=== PATIENT | male | born 1955 | race Caucasian/White ===

== ENCOUNTER → 2017-11-18 11:39 | Outpatient (CLI) | payer BC, SELFPAY ==
[2017-11-18 14:35] LABS: Absolute Lymphocyte Count 1.43 X10^3/ul (0.83-4.51); Absolute Neutrophil Count 3.6 X10^3/uL (2.0-7.7); Basophil# 0.02 X10^3/uL; Basophil% 0.4 % (0-1); Eosinophil# 0.12 X10^3/uL; Eosinophils% 2.1 % (0-5); Hematocrit 46.6 % (40-54); Hemoglobin 16.4 g/dl (13.0-16.5); Lymphocyte # 1.43 X10^3/ul (4.0); Lymphocyte % 25.4 % (19-41); Mean Corp Hgb Conc 35.2 g/gl (32-36); Mean Corpuscular Hgb 32.5 pg (27.0-32.0); Mean Corpuscular Volume 92.5 fL (80-94); Mean Platelet Vol. 9.6 fl (6.2-12.0); Monocyte# 0.43 X10^3/uL; Monocyte% 7.6 % (0-10); Neutrophil # 3.56 X10^3/uL (2.7-7.7); Neutrophil % 63.3 % (47-70); Platelet Count 267 K/mm3 (150-450); RBC Distribution Width CV 13.1 % (11.6-14.6); RBC Distribution Width SD 43.2 fl (35.1-43.9); Red Blood Count 5.04 M/mm3 (4.6-6.2); White Blood Count 5.6 K/mm3 (4.4-11.0)
[2017-11-18 14:39] LABS: POSITIVE COUNT NO; POSITIVE DIFFERENTIAL NO; POSITIVE MORPHOLOGY NO
[2017-11-18 14:46] LABS: Vitamin D,25 Hydroxy 29.5 ng/mL (29.95-100.01)
[2017-11-18 14:52] LABS: ALB/GLOB Ratio 1.1 RATIO (0.9-2.4); AST(SGOT) 27 U/L (15-37); Alanine Aminotransfer ALT/SGPT 42 U/L (16-61); Albumin, Serum 3.7 g/dL (3.2-5.0); Alkaline Phosphatase 122 U/L (45-117); Anion Gap 8 (5-15); BUN 17 mg/dL (7-18); BUN/Creat Ratio 15.5 RATIO (10-20); Calcium,Total 8.5 mg/dL (8.5-10.1); Chloride 104 mmol/L (98-107); EST Glomerular Filtration Rate 72 mL/min (>60); Est Glom Filt Rate - Afr Amer 87 mL/min (>60); Globulin 3.5 g/dL (2.2-4.2); Glucose 151 mg/dL (74-106); PSA,Total - Annual Screen 3.15 ng/mL (0.00-4.00); Potassium 3.9 mmol/L (3.5-5.1); Protein, Total 7.2 g/dL (6.4-8.2); Sodium Level 139 mmol/L (136-145)
[2017-11-20 12:28] LABS: Hep C Antibodies <0.1 s/co ratio (0.0-0.9)
== END ==
PROVIDERS: Family Provider Family Medicine Geriatric Medicine; PCP Family Medicine Geriatric Medicine; Visit Provider Family Medicine Geriatric Medicine
DX: Z13.89 Encounter for screening for other disorder (principal); Z12.5 Encounter for screening for malignant neoplasm of prostate; E55.9 Vitamin D deficiency, unspecified; I10 Essential (primary) hypertension
CPT/HCPCS: 36415; 80053; 82306; 84153; 84443; 85025; 86803; G0103

== ENCOUNTER → 2018-05-19 09:42 | Outpatient (CLI) | payer BC, SELFPAY ==
[2018-05-19 12:45] LABS: Absolute Lymphocyte Count 1.42 X10^3/ul (0.83-4.51); Absolute Neutrophil Count 3.5 X10^3/uL (2.0-7.7); Basophil# 0.03 X10^3/uL; Basophil% 0.5 % (0-1); Eosinophil# 0.13 X10^3/uL; Eosinophils% 2.2 % (0-5); Hematocrit 48.3 % (40-54); Hemoglobin 16.8 g/dl (13.0-16.5); Lymphocyte # 1.42 X10^3/ul (4.0); Lymphocyte % 24.5 % (19-41); Mean Corp Hgb Conc 34.8 g/gl (32-36); Mean Corpuscular Hgb 31.8 pg (27.0-32.0); Mean Corpuscular Volume 91.5 fL (80-94); Mean Platelet Vol. 9.4 fl (6.2-12.0); Monocyte# 0.69 X10^3/uL; Monocyte% 11.9 % (0-10); Neutrophil % 60.4 % (47-70); Platelet Count 270 K/mm3 (150-450); RBC Distribution Width CV 13.2 % (11.6-14.6); RBC Distribution Width SD 43.3 fl (35.1-43.9); Red Blood Count 5.28 M/mm3 (4.6-6.2); White Blood Count 5.8 K/mm3 (4.4-11.0)
[2018-05-19 12:46] LABS: POSITIVE COUNT NO; POSITIVE DIFFERENTIAL NO; POSITIVE MORPHOLOGY NO
[2018-05-19 13:07] LABS: AST(SGOT) 31 U/L (15-37); Alanine Aminotransfer ALT/SGPT 49 U/L (16-61); Albumin, Serum 3.8 g/dL (3.2-5.0); Alkaline Phosphatase 128 U/L (45-117); Anion Gap 6 (5-15); BUN 16 mg/dL (7-18); BUN/Creat Ratio 15.2 RATIO (10-20); Calcium,Total 8.6 mg/dL (8.5-10.1); Chloride 103 mmol/L (98-107); Creatinine, Serum 1.05 mg/dL (0.70-1.30); EST Glomerular Filtration Rate 75 mL/min (>60); Est Glom Filt Rate - Afr Amer 91 mL/min (>60); Globulin 3.8 g/dL (2.2-4.2); Glucose 89 mg/dL (74-106); Potassium 4.2 mmol/L (3.5-5.1); Protein, Total 7.6 g/dL (6.4-8.2); Sodium Level 139 mmol/L (136-145); Thyroid Stim Hormone (TSH) 1.28 uIU/mL (0.358-3.74)
== END ==
PROVIDERS: Family Provider Family Medicine Geriatric Medicine; PCP Family Medicine Geriatric Medicine; Visit Provider Family Medicine Geriatric Medicine
DX: E55.9 Vitamin D deficiency, unspecified (principal); I10 Essential (primary) hypertension
CPT/HCPCS: 36415; 80053; 84443; 85025

== ENCOUNTER → 2018-11-24 10:04 | Outpatient (CLI) | payer MEDICARE, BC, SELFPAY ==
[2018-11-24 10:37] LABS: Absolute Lymphocyte Count 1.24 X10^3/ul (0.83-4.51); Basophil# 0.02 X10^3/uL; Basophil% 0.3 % (0-1); Eosinophil# 0.09 X10^3/uL; Eosinophils% 1.5 % (0-5); Hematocrit 47.4 % (40-54); Hemoglobin 16.5 g/dl (13.0-16.5); Lymphocyte # 1.24 X10^3/ul (4.0); Lymphocyte % 20.1 % (19-41); Mean Corp Hgb Conc 34.8 g/gl (32-36); Mean Corpuscular Hgb 31.3 pg (27.0-32.0); Mean Corpuscular Volume 89.9 fL (80-94); Mean Platelet Vol. 8.9 fl (6.2-12.0); Monocyte# 0.67 X10^3/uL; Monocyte% 10.9 % (0-10); Neutrophil # 4.02 X10^3/uL (2.7-7.7); Neutrophil % 65.1 % (47-70); Platelet Count 258 K/mm3 (150-450); RBC Distribution Width CV 13.9 % (11.6-14.6); RBC Distribution Width SD 45.2 fl (35.1-43.9); Red Blood Count 5.27 M/mm3 (4.6-6.2); White Blood Count 6.2 K/mm3 (4.4-11.0)
[2018-11-24 10:41] LABS: POSITIVE COUNT YES; POSITIVE DIFFERENTIAL NO; POSITIVE MORPHOLOGY YES
[2018-11-24 11:09] LABS: AST(SGOT) 25 U/L (15-37); Alanine Aminotransfer ALT/SGPT 31 U/L (16-61); Albumin, Serum 3.6 g/dL (3.2-5.0); Alkaline Phosphatase 128 U/L (45-117); Anion Gap 6 (5-15); BUN 22 mg/dL (7-18); BUN/Creat Ratio 21.4 RATIO (10-20); Calcium,Total 8.6 mg/dL (8.5-10.1); Chloride 104 mmol/L (98-107); Creatinine, Serum 1.03 mg/dL (0.70-1.30); EST Glomerular Filtration Rate 77 mL/min (>60); Est Glom Filt Rate - Afr Amer 93 mL/min (>60); Globulin 3.5 g/dL (2.2-4.2); Glucose 110 mg/dL (74-106); Protein, Total 7.1 g/dL (6.4-8.2); Sodium Level 137 mmol/L (136-145); Thyroid Stim Hormone (TSH) 1.37 uIU/mL (0.358-3.74)
[2018-11-24 13:59] LABS: Vitamin D,25 Hydroxy 22.9 ng/mL (29.95-100.01)
[2018-11-26 10:20] LABS: Pathologist Review Reviewed
== END ==
PROVIDERS: Family Provider Family Medicine Geriatric Medicine; PCP Family Medicine Geriatric Medicine; Visit Provider Family Medicine Geriatric Medicine
DX: E55.9 Vitamin D deficiency, unspecified (principal); I10 Essential (primary) hypertension; Z12.5 Encounter for screening for malignant neoplasm of prostate
CPT/HCPCS: 36415; 80053; 82306; 84153; 84443; 85025; G0103

== ENCOUNTER → 2019-03-27 12:42 | Outpatient (CLI) | payer MEDICARE, BC, SELFPAY ==
--- NOTE | 2019-03-27 12:48 | RAD_ITS ---
HISTORY:right knee pain x several monthsNKIincreasing pain right knee pain x several monthsNKIincreasing pain COMPARISON: None FINDINGS: # of images incl. paperwork: 4 XR Knee Complete 4 Views or More: Right BONE AND JOINTS: No acute fracture or subluxation. Minimal spurring at the patellofemoral joint as well as the tibial spines SOFT TISSUES: Unremarkable. No radiopaque foreign body. RAD/Knee 4 or More Views IMPRESSION: No acute pathology Minimal spurring at the patellofemoral joint as well as at the tibial spines at 2121 Reported and signed by: Little Blake DO Electronically Signed: Little Blake DO at 21:20 EDT Tel , Service support ,
== END ==
PROVIDERS: Family Provider Family Medicine Geriatric Medicine; PCP Family Medicine Geriatric Medicine; Referring Provider Family Medicine Geriatric Medicine; Visit Provider Family Medicine Geriatric Medicine
DX: M25.561 Pain in right knee (principal)
CPT/HCPCS: 73564

== ENCOUNTER 2019-04-07 12:59 | Outpatient (RCR) | payer MEDICARE, BC, SELFPAY ==
--- NOTE | 2019-04-07 13:45 | HP.PTEVAL_ITS ---
Patient's Visit Information ALONSO BEAN is a 63 year old M referred to Physical Therapy by Dash Rueda MD with a diagnosis of OA R knee. Date of Evaluation: 04/07/19 Physical Therapist: Mj Beckford, DPT, OCS, CSCS - Visit Plan Plan: No skilled intervention required at this time. I have shown the patient HS stretch which addresses his only biomechanical clinical deficit today. i have recommended non damaging ROM exercises. The injections seem to have done their job and gotten rid of his pain. - Subjective Findings: Was having trouble with R knee on steps adn getting in and out of car. Had tried massage and chiropractor. Started insidiously in January. 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 Getting off plane was the first time he noticed it. That worsened until he saw doctor Mohit gant diagnosed with OA. gave hi meds adn injections and that was 03/27 and has had no pain since. X rays showed mild spurring. Meds ran out a number of days ago and he has been painfree since then. No history of knee problems. Sleeping Ok now and it used to keep him up. No problem in last couple weeks. 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 Hobbies: gardening and moving mulch and raking no problem. Basic aDLS are OK. - Objective Walks normal, transfers normal. Steps normal without rail. Full aROM B knees to 138 adn 0 ext without pain. HS -30 90/90 test, other muscles WFL. patella moves well B. Strength B hips 4/5 in abd and ext, 4+ flexion, 4+ knee ext adn flexion and 5/5 ankle all without pain. - patellar grind, - bounce home, - ant drawer. No tenderness in patella or joint line today. - Rehabilitation Potential Physical Therapy Diagnosis: OA R knee Rehabilitation Potential: Fair - Anticipated Interventions Thank you for the opportunity to evaluate your patient. For Medicare and Medicare HMO plans, please review the plan of care and approve it. It will need to be FAXED BACK to us at [phone] for Medicare purposes. For Medicare only, by signing this I certify the plan of care. Please let me know if there are questions or concerns regarding this plan of care. Physician Signature: Date:
== END 2019-04-07 19:00 | disposition home or self-care (01) ==
LOC: PT 12:59
PROVIDERS: Family Provider Family Medicine Geriatric Medicine; PCP Family Medicine Geriatric Medicine; Referring Provider Family Medicine Geriatric Medicine; Visit Provider Family Medicine Geriatric Medicine
DX: M17.11 Unilateral primary osteoarthritis, right knee (principal)
CPT/HCPCS: 97161

== ENCOUNTER → 2019-05-25 10:15 | Outpatient (CLI) | payer MEDICARE, BC, SELFPAY ==
[2019-05-25 12:49] LABS: Absolute Neutrophil Count 5.5 X10^3/uL (2.0-7.7); Basophil# 0.09 X10^3/uL; Basophil% 1.1 % (0-1); Eosinophil# 0.08 X10^3/uL; Hematocrit 44.5 % (40-54); Hemoglobin 15.2 g/dL (13.0-16.5); Lymphocyte % 17.9 % (19-41); Mean Corp Hgb Conc 34.2 g/dL (32-36); Mean Corpuscular Hgb 31.7 pg (27.0-32.0); Mean Corpuscular Volume 92.7 fL (80-94); Mean Platelet Vol. 8.5 fl (6.2-12.0); Monocyte# 0.55 X10^3/uL; NRBC Flagged by Analyzer 0 % (0-5); Neutrophil # 5.46 X10^3/uL (2.7-7.7); Neutrophil % 69.7 % (47-70); Platelet Count 370 K/mm3 (150-450); RBC Distribution Width CV 13.2 % (11.6-14.6); RBC Distribution Width SD 44.1 fl (35.1-43.9); White Blood Count 7.8 K/mm3 (4.4-11.0)
[2019-05-25 12:54] LABS: Vitamin D,25 Hydroxy 25.3 ng/mL (29.95-100.01)
[2019-05-25 13:10] LABS: ALB/GLOB Ratio 0.8 RATIO (0.9-2.4); AST(SGOT) 22 U/L (15-37); Alanine Aminotransfer ALT/SGPT 45 U/L (16-61); Albumin, Serum 3.1 g/dL (3.2-5.0); Alkaline Phosphatase 110 U/L (45-117); Anion Gap 8 (5-15); BUN 16 mg/dL (7-18); BUN/Creat Ratio 15.7 RATIO (10-20); Calcium,Total 8.7 mg/dL (8.5-10.1); Chloride 101 mmol/L (98-107); Creatinine, Serum 1.02 mg/dL (0.70-1.30); EST Glomerular Filtration Rate 78 mL/min (>60); Est Glom Filt Rate - Afr Amer 94 mL/min (>60); Globulin 3.9 g/dL (2.2-4.2); Glucose 122 mg/dL (74-106); Sodium Level 138 mmol/L (136-145); Thyroid Stim Hormone (TSH) 1.09 uIU/mL (0.358-3.74)
== END ==
PROVIDERS: Family Provider Family Medicine Geriatric Medicine; PCP Family Medicine Geriatric Medicine; Visit Provider Family Medicine Geriatric Medicine
DX: E55.9 Vitamin D deficiency, unspecified (principal); I10 Essential (primary) hypertension
CPT/HCPCS: 36415; 80053; 82306; 84443; 85025

== ENCOUNTER → 2019-07-20 15:59 | Outpatient (CLI) | payer MEDICARE, BC, SELFPAY | PROVIDERS: Family Provider Family Medicine Geriatric Medicine; PCP Family Medicine Geriatric Medicine; Referring Provider Family Medicine Geriatric Medicine; Visit Provider Family Medicine Geriatric Medicine | DX: R68.83 Chills (without fever) (principal) | CPT/HCPCS: 87633 ==

== ENCOUNTER → 2019-12-02 12:08 | Outpatient (CLI) | payer MEDICARE, BC, SELFPAY ==
[2019-12-02 12:43] LABS: Absolute Lymphocyte Count 1.21 X10^3/uL (0.83-4.51); Basophil# 0.06 X10^3/uL; Eosinophils% 1.6 % (0-5); Hematocrit 46.7 % (40-54); Hemoglobin 15.7 g/dL (13.0-16.5); Lymphocyte # 1.21 X10^3/ul (4.0); Lymphocyte % 19.6 % (19-41); Mean Corp Hgb Conc 33.6 g/dL (32-36); Mean Corpuscular Hgb 30.5 pg (27.0-32.0); Mean Corpuscular Volume 90.7 fL (80-94); Mean Platelet Vol. 9.4 fl (6.2-12.0); Monocyte# 0.79 X10^3/uL; Monocyte% 12.8 % (0-10); NRBC Flagged by Analyzer 0 % (0-5); Neutrophil # 3.95 X10^3/uL (2.7-7.7); Neutrophil % 64.2 % (47-70); Platelet Count 293 K/mm3 (150-450); RBC Distribution Width CV 13.2 % (11.6-14.6); RBC Distribution Width SD 43.9 fl (35.1-43.9); Red Blood Count 5.15 M/mm3 (4.6-6.2); White Blood Count 6.2 K/mm3 (4.4-11.0)
[2019-12-02 13:18] LABS: Vitamin D,25 Hydroxy 28.2 ng/mL
[2019-12-02 13:28] LABS: ALB/GLOB Ratio 1.1 RATIO (0.9-2.4); AST(SGOT) 29 U/L (15-37); Alanine Aminotransfer ALT/SGPT 37 U/L (16-61); Albumin, Serum 3.7 g/dL (3.2-5.0); Alkaline Phosphatase 135 U/L (45-117); Anion Gap 9 (5-15); BUN 23 mg/dL (7-18); BUN/Creat Ratio 22.1 RATIO (10-20); Calcium,Total 8.8 mg/dL (8.5-10.1); Chloride 107 mmol/L (98-107); Creatinine, Serum 1.04 mg/dL (0.70-1.30); EST Glomerular Filtration Rate 76 mL/min (>60); Est Glom Filt Rate - Afr Amer 92 mL/min (>60); Globulin 3.5 g/dL (2.2-4.2); Glucose 112 mg/dL (74-106); PSA,Total - Annual Screen 5.46 ng/mL (0.00-4.00); Potassium 3.8 mmol/L (3.5-5.1); Protein, Total 7.2 g/dL (6.4-8.2); Sodium Level 141 mmol/L (136-145)
== END ==
PROVIDERS: PCP Family Medicine Geriatric Medicine; Visit Provider Family Medicine Geriatric Medicine
DX: I10 Essential (primary) hypertension (principal); E55.9 Vitamin D deficiency, unspecified; Z12.5 Encounter for screening for malignant neoplasm of prostate
CPT/HCPCS: 36415; 80053; 82306; 84153; 84443; 85025; G0103

== ENCOUNTER → 2020-01-25 | Outpatient (CLI) | payer MEDICARE, BC, SELFPAY ==
--- NOTE | 2020-01-25 | PROSBIL_PTH ---
PATIENT: ALONSO BEAN LOC: [facility] U#:[id number] AGE/SX: 64/M ROOM: RE01/25/[address]: Dr. Brad Main MD : 1955 BED: DIS: 01/25/2020 SPEC #: [id number] RECD: 01/26/20 07:43 STATUS: SHERIDAN REQ #: [id number] DAINA: 01/25/20 00:[address]: Brad Main DEPT: SURGICAL PATHOLOGY RECD BY: Daniel Juares ENTERED: 01/26/20 07:43 SP TYPE: PROST BX ARTEMIO DR: Dr. Dash Rueda MD Tissues: A - PROSTATE RIGHT B - PROSTATE RIGHT C - PROSTATE RIGHT D - PROSTATE LEFT E - PROSTATE LEFT F - PROSTATE LEFT Procedures: PROSTATE BX HEADER OPERATION: Prostate biopsy PRE-OP DIAGNOSIS: Elevated PSA TISSUE SUBMITTED: A - Right apex, B - Right mid, C - Right base, D - Left apex, E - Left mid, F - Left base MICROSCOPIC DIAGNOSIS A. Right prostate, apex, core biopsy: Prostatic tissue, negative for malignancy. Focal acute and chronic inflammation. B. Right prostate, mid, core biopsy: Prostatic tissue, negative for malignancy. Focal mild chronic inflammation. C. Right prostate, base, core biopsy: Prostatic tissue, negative for malignancy. Focal mild chronic inflammation. D. Left prostate, apex, core biopsy: Prostatic tissue, negative for malignancy. Focal mild chronic inflammation. E. Left prostate, mid, core biopsy: Prostatic tissue, negative for malignancy. Focal mild chronic inflammation. F. Left prostate, base, core biopsy: Prostatic tissue, negative for malignancy. Mild chronic inflammation. SJ:aj 01/27/20 MICROSCOPIC DESCRIPTION Slides are reviewed. GROSS DESCRIPTION A - Received is one container designated prostate, right apex. The specimen consists of two elongated fragments of light ding-white soft tissue measuring 1 and 1.2 cm in length and 0.1 cm in diameter. The specimen is totally submitted in one cassette. B - Received is one container designated prostate, right mid. The specimen consists of two elongated fragments of light ding-white soft tissue each measuring 2 cm in length and 0.1 cm in diameter. The specimen is totally submitted in one cassette. C - Received is one container designated prostate, right base. The specimen consists of two elongated fragments of light ding-white soft tissue measuring 1.7 and 1.5 cm in length and 0.1 cm in diameter. The specimen is totally submitted in one cassette. D - Received is one container designated prostate, left apex. The specimen consists of two elongated fragments of light ding-white soft tissue each measuring 1.5 cm in length and 0.1 cm in diameter. The specimen is totally submitted in one cassette. E - Received is one container designated prostate, left mid. The specimen consists of two elongated fragments of light ding-white soft tissue each measuring 1.6 cm in length and 0.1 cm in diameter. The specimen is totally submitted in one cassette. F - Received is one container designated prostate, left base. The specimen consists of two elongated fragments of light ding-white soft tissue measuring 0.8 and 1 cm in length and 0.1 cm in diameter. The specimen is totally submitted in one cassette. / SJ:rg 01/26/20 TC:3 CPT: G0146
== END | disposition home or self-care (01) ==
LOC: LABSPEC 16:30
PROVIDERS: PCP Family Medicine Geriatric Medicine; Referring Provider Urology; Visit Provider Urology
DX: R97.20 Elevated prostate specific antigen [PSA] (principal)
CPT/HCPCS: 88305; G0416

== ENCOUNTER → 2020-05-31 10:39 | Outpatient (CLI) | payer MEDICARE, BC, SELFPAY ==
[2020-05-31 12:10] LABS: Absolute Lymphocyte Count 1.43 X10^3/uL (0.83-4.51); Absolute Neutrophil Count 4.1 X10^3/uL (2.0-7.7); Basophil# 0.03 X10^3/uL; Basophil% 0.5 % (0-1); Eosinophil# 0.34 X10^3/uL; Eosinophils% 5.1 % (0-5); Hemoglobin 15.6 g/dL (13.0-16.5); Lymphocyte # 1.43 X10^3/ul (4.0); Lymphocyte % 21.6 % (19-41); Mean Corp Hgb Conc 33.2 g/dL (32-36); Mean Corpuscular Hgb 29.9 pg (27.0-32.0); Mean Corpuscular Volume 90.2 fL (80-94); Mean Platelet Vol. 9.4 fl (6.2-12.0); Monocyte# 0.67 X10^3/uL; Monocyte% 10.1 % (0-10); NRBC Flagged by Analyzer 0 % (0-5); Neutrophil % 61.9 % (47-70); Platelet Count 304 K/mm3 (150-450); RBC Distribution Width CV 13.6 % (11.6-14.6); RBC Distribution Width SD 45.2 fl (35.1-43.9); Red Blood Count 5.21 M/mm3 (4.6-6.2); White Blood Count 6.6 K/mm3 (4.4-11.0)
[2020-05-31 12:38] LABS: ALB/GLOB Ratio 1.1 RATIO (0.9-2.4); AST(SGOT) 21 U/L (15-37); Alanine Aminotransfer ALT/SGPT 34 U/L (16-61); Albumin, Serum 3.7 g/dL (3.2-5.0); Alkaline Phosphatase 143 U/L (45-117); Anion Gap 6 (5-15); BUN 19 mg/dL (7-18); BUN/Creat Ratio 16.7 RATIO (10-20); Chloride 105 mmol/L (98-107); Creatinine, Serum 1.14 mg/dL (0.70-1.30); EST Glomerular Filtration Rate 68 mL/min (>60); Est Glom Filt Rate - Afr Amer 82 mL/min (>60); Globulin 3.5 g/dL (2.2-4.2); Glucose 110 mg/dL (74-106); Protein, Total 7.2 g/dL (6.4-8.2); Sodium Level 138 mmol/L (136-145); Thyroid Stim Hormone (TSH) 1.52 uIU/mL (0.358-3.74)
== END ==
PROVIDERS: PCP Family Medicine Geriatric Medicine; Visit Provider Family Medicine Geriatric Medicine
DX: I10 Essential (primary) hypertension (principal); E55.9 Vitamin D deficiency, unspecified; Z12.5 Encounter for screening for malignant neoplasm of prostate
CPT/HCPCS: 36415; 80053; 82306; 84153; 84443; 85025; G0103

== ENCOUNTER → 2020-08-09 15:02 | Outpatient (CLI) | payer MEDICARE, BC, SELFPAY ==
[2020-08-09 16:28] LABS: PSA,Total- Diagnostic 3.99 ng/mL (0.0-4.0)
== END ==
PROVIDERS: PCP Family Medicine Geriatric Medicine; Referring Provider Urology; Visit Provider Urology
DX: R97.20 Elevated prostate specific antigen [PSA] (principal)
CPT/HCPCS: 36415; 84153

== ENCOUNTER → 2020-12-06 11:28 | Outpatient (CLI) | payer MEDICARE, BC, SELFPAY ==
[2020-12-06 12:33] LABS: Absolute Lymphocyte Count 1.59 X10^3/uL (0.83-4.51); Absolute Neutrophil Count 5.4 X10^3/uL (2.0-7.7); Basophil# 0.06 X10^3/uL; Basophil% 0.7 % (0-1); Eosinophil# 0.06 X10^3/uL; Eosinophils% 0.7 % (0-5); Hematocrit 46.4 % (40-54); Hemoglobin 15.5 g/dL (13.0-16.5); Lymphocyte # 1.59 X10^3/ul (0.83-4.51); Lymphocyte % 19.3 % (19-41); Mean Corp Hgb Conc 33.4 g/dL (32-36); Mean Corpuscular Hgb 29.5 pg (27.0-32.0); Mean Corpuscular Volume 88.4 fL (80-94); Mean Platelet Vol. 9.1 fl (6.2-12.0); Monocyte# 0.86 X10^3/uL; Monocyte% 10.4 % (0-10); NRBC Flagged by Analyzer 0 % (0-5); Neutrophil # 5.44 X10^3/uL (2.7-7.7); Neutrophil % 66.2 % (47-70); Platelet Count 312 K/mm3 (150-450); RBC Distribution Width CV 14.9 % (11.6-14.6); Red Blood Count 5.25 M/mm3 (4.6-6.2); White Blood Count 8.2 K/mm3 (4.4-11.0)
[2020-12-06 12:47] LABS: Vitamin D,25 Hydroxy 30.3 ng/mL
[2020-12-06 13:06] LABS: ALB/GLOB Ratio 1.1 RATIO (0.9-2.4); AST(SGOT) 19 U/L (15-37); Alanine Aminotransfer ALT/SGPT 35 U/L (16-61); Albumin, Serum 3.6 g/dL (3.2-5.0); Alkaline Phosphatase 125 U/L (45-117); Anion Gap 7 (5-15); BUN 17 mg/dL (7-18); BUN/Creat Ratio 16.3 RATIO (10-20); Calcium,Total 8.5 mg/dL (8.5-10.1); Chloride 105 mmol/L (98-107); Creatinine, Serum 1.04 mg/dL (0.70-1.30); EST Glomerular Filtration Rate 76 mL/min (>60); Est Glom Filt Rate - Afr Amer 92 mL/min (>60); Globulin 3.3 g/dL (2.2-4.2); Glucose 94 mg/dL (74-106); Potassium 3.9 mmol/L (3.5-5.1); Protein, Total 6.9 g/dL (6.4-8.2); Sodium Level 138 mmol/L (136-145); Thyroid Stim Hormone (TSH) 1.21 uIU/mL (0.358-3.74)
== END ==
PROVIDERS: PCP Family Medicine Geriatric Medicine; Visit Provider Family Medicine Geriatric Medicine
DX: I10 Essential (primary) hypertension (principal); E55.9 Vitamin D deficiency, unspecified
CPT/HCPCS: 36415; 80053; 82306; 84443; 85025

== ENCOUNTER → 2021-04-27 14:36 | Outpatient (CLI) | payer MEDICARE, BC, SELFPAY ==
--- NOTE | 2021-04-27 14:40 | RAD_ITS ---
STUDY: X-RAY CHEST REASON FOR EXAM: Male, 65 years old. PRURITUS TECHNIQUE: PA and lateral views of the chest. COMPARISON: Comparison is made with prior study dated 04/29/2013. FINDINGS: There is hyperinflation of the lungs consistent with chronic obstructive lung disease (COPD). Scattered calcified granulomas. There is no demonstrated pleural abnormality. Normal size heart. Normal mediastinum and judit. Normal visualized pulmonary arteries. There is atherosclerotic calcification of the aortic arch with tortuosity. There are degenerative changes of the visualized thoracic spine. Normal visualized ribs, clavicles, and shoulders. There is no demonstrated abnormality of the visualized soft tissue structures of the upper abdomen. RAD/Chest PA and Lateral IMPRESSION: Hyperinflation. The lungs are clear. Electronically Signed: Jose Crowder MD at 15:27 EDT , Service support ,
[2021-04-27 17:40] LABS: Absolute Lymphocyte Count 1.55 X10^3/uL (0.83-4.51); Absolute Neutrophil Count 4.1 X10^3/uL (2.0-7.7); Basophil# 0.06 X10^3/uL; Basophil% 0.9 % (0-1); Eosinophil# 0.25 X10^3/uL; Eosinophils% 3.7 % (0-5); Hematocrit 45.4 % (40-54); Hemoglobin 15.2 g/dL (13.0-16.5); Lymphocyte # 1.55 X10^3/ul (0.83-4.51); Mean Corp Hgb Conc 33.5 g/dL (32-36); Mean Corpuscular Hgb 29.5 pg (27.0-32.0); Mean Corpuscular Volume 88.2 fL (80-94); Mean Platelet Vol. 9.1 fl (6.2-12.0); Monocyte# 0.74 X10^3/uL; NRBC Flagged by Analyzer 0 % (0-5); Neutrophil # 4.06 X10^3/uL (2.7-7.7); Neutrophil % 60.4 % (47-70); Platelet Count 303 K/mm3 (150-450); RBC Distribution Width CV 13.1 % (11.6-14.6); RBC Distribution Width SD 42.3 fl (35.1-43.9); Red Blood Count 5.15 M/mm3 (4.6-6.2); White Blood Count 6.7 K/mm3 (4.4-11.0)
[2021-04-27 18:02] LABS: AST(SGOT) 26 U/L (15-37); Alanine Aminotransfer ALT/SGPT 38 U/L (16-61); Albumin, Serum 3.6 g/dL (3.2-5.0); Alkaline Phosphatase 134 U/L (45-117); Anion Gap 8 (5-15); BUN 17 mg/dL (7-18); BUN/Creat Ratio 14.8 RATIO (10-20); Bilirubin, Direct 0.11 mg/dL (0.00-0.30); Calcium,Total 9.2 mg/dL (8.5-10.1); Chloride 105 mmol/L (98-107); Creatinine, Serum 1.15 mg/dL (0.70-1.30); EST Glomerular Filtration Rate 67 mL/min (>60); Est Glom Filt Rate - Afr Amer 81 mL/min (>60); Globulin 3.6 g/dL (2.2-4.2); Glucose 113 mg/dL (74-106); Potassium 3.9 mmol/L (3.5-5.1); Protein, Total 7.2 g/dL (6.4-8.2); Sodium Level 139 mmol/L (136-145); T4 Free Direct 0.77 ng/dL (0.76-1.46); Thyroid Stim Hormone (TSH) 1.83 uIU/mL (0.358-3.74)
[2021-04-28 12:59] LABS: HIV - WCH Non-Reactive (Nonreactive); Hepatitis C Antibody Non-Reactive (Nonreactive)
[2021-05-02 15:08] LABS: Albumin 3.7 g/dL (2.9-4.4); Alpha-1-Globulins 0.2 g/dL (0.0-0.4); Alpha-2-Globulins 0.8 g/dL (0.4-1.0); Immunoglobulin A 141 mg/dL (61-437); Immunoglobulin G 914 mg/dL (603-1613); Immunoglobulin M 101 mg/dL (20-172); PROEL- TOTAL PROTEIN 6.8 g/dL (6.0-8.5); PROELU- Albumin, Urine 33.9 % (.); PROELU- Alpha-1-Globulin,Ur 1.7 % (.); PROELU- Alpha-2-Globulin,Ur 17.1 % (.); PROELU- Gamma Globulin, Ur 15.3 % (.); Total Protein, Ur 8.7 mg/dL (Not Estab.)
== END ==
PROVIDERS: PCP Family Medicine Geriatric Medicine; Referring Provider Dermatology; Visit Provider Dermatology
DX: L29.8 Other pruritus (principal); L30.8 Other specified dermatitis; L50.3 Dermatographic urticaria; L28.1 Prurigo nodularis; R53.83 Other fatigue
CPT/HCPCS: 36415; 71046; 80048; 80076; 82784; 83516; 84165; 84166; 84439; 84443; 85025; 86038; 86334; 86703; 86803

== ENCOUNTER → 2021-05-16 10:53 | Outpatient (CLI) | payer MEDICARE, BC, SELFPAY ==
[2021-05-16 12:36] LABS: Absolute Lymphocyte Count 1.39 X10^3/uL (0.83-4.51); Absolute Neutrophil Count 5.4 X10^3/uL (2.0-7.7); Basophil# 0.04 X10^3/uL; Basophil% 0.5 % (0-1); Eosinophils% 2.5 % (0-5); Hematocrit 47.4 % (40-54); Hemoglobin 15.8 g/dL (13.0-16.5); Lymphocyte # 1.39 X10^3/ul (0.83-4.51); Lymphocyte % 17.2 % (19-41); Mean Corp Hgb Conc 33.3 g/dL (32-36); Mean Corpuscular Hgb 29.1 pg (27.0-32.0); Mean Corpuscular Volume 87.3 fL (80-94); Mean Platelet Vol. 9.2 fl (6.2-12.0); Monocyte# 0.97 X10^3/uL; NRBC Flagged by Analyzer 0 % (0-5); Neutrophil # 5.42 X10^3/uL (2.7-7.7); Neutrophil % 66.8 % (47-70); Platelet Count 271 K/mm3 (150-450); RBC Distribution Width CV 14.2 % (11.6-14.6); RBC Distribution Width SD 45.5 fl (35.1-43.9); Red Blood Count 5.43 M/mm3 (4.6-6.2); White Blood Count 8.1 K/mm3 (4.4-11.0)
[2021-05-16 12:51] LABS: Vitamin D,25 Hydroxy 23.3 ng/mL
[2021-05-16 12:54] LABS: ALB/GLOB Ratio 0.9 RATIO (0.9-2.4); AST(SGOT) 26 U/L (15-37); Alanine Aminotransfer ALT/SGPT 43 U/L (16-61); Albumin, Serum 3.4 g/dL (3.2-5.0); Alkaline Phosphatase 124 U/L (45-117); Anion Gap 5 (5-15); BUN 19 mg/dL (7-18); BUN/Creat Ratio 16.7 RATIO (10-20); Chloride 101 mmol/L (98-107); Creatinine, Serum 1.14 mg/dL (0.70-1.30); EST Glomerular Filtration Rate 68 mL/min (>60); Est Glom Filt Rate - Afr Amer 82 mL/min (>60); Globulin 3.9 g/dL (2.2-4.2); Glucose 90 mg/dL (74-106); Potassium 3.9 mmol/L (3.5-5.1); Protein, Total 7.3 g/dL (6.4-8.2); Sodium Level 136 mmol/L (136-145); Thyroid Stim Hormone (TSH) 1.38 uIU/mL (0.358-3.74)
== END ==
PROVIDERS: PCP Family Medicine Geriatric Medicine; Visit Provider Family Medicine Geriatric Medicine
DX: I10 Essential (primary) hypertension (principal); E55.9 Vitamin D deficiency, unspecified
CPT/HCPCS: 36415; 80053; 82306; 84443; 85025

== ENCOUNTER → 2021-06-26 08:17 | Outpatient (CLI) | payer MEDICARE, BC, SELFPAY ==
[2021-06-26 10:01] LABS: Absolute Lymphocyte Count 1.08 X10^3/uL (0.83-4.51); Absolute Neutrophil Count 3.6 X10^3/uL (2.0-7.7); Basophil# 0.04 X10^3/uL; Basophil% 0.7 % (0-1); Eosinophil# 0.18 X10^3/uL; Eosinophils% 3.2 % (0-5); Hematocrit 43.1 % (40-54); Hemoglobin 14.7 g/dL (13.0-16.5); Lymphocyte # 1.08 X10^3/ul (0.83-4.51); Lymphocyte % 19.4 % (19-41); Mean Corp Hgb Conc 34.1 g/dL (32-36); Mean Platelet Vol. 8.8 fl (6.2-12.0); Monocyte% 10.8 % (0-10); NRBC Flagged by Analyzer 0 % (0-5); Neutrophil # 3.63 X10^3/uL (2.7-7.7); Neutrophil % 65.4 % (47-70); Platelet Count 270 K/mm3 (150-450); RBC Distribution Width CV 15.6 % (11.6-14.6); RBC Distribution Width SD 49.2 fl (35.1-43.9); White Blood Count 5.6 K/mm3 (4.4-11.0)
[2021-06-26 10:30] LABS: AST(SGOT) 24 U/L (15-37); Alanine Aminotransfer ALT/SGPT 39 U/L (16-61); Albumin, Serum 3.5 g/dL (3.2-5.0); Alkaline Phosphatase 112 U/L (45-117); Anion Gap 5 (5-15); BUN 13 mg/dL (7-18); BUN/Creat Ratio 13.1 RATIO (10-20); Bilirubin, Direct 0.13 mg/dL (0.00-0.30); Calcium,Total 8.8 mg/dL (8.5-10.1); Chloride 105 mmol/L (98-107); Creatinine, Serum 0.99 mg/dL (0.70-1.30); EST Glomerular Filtration Rate 80 mL/min (>60); Est Glom Filt Rate - Afr Amer 97 mL/min (>60); Globulin 3.5 g/dL (2.2-4.2); Glucose 107 mg/dL (74-106); Potassium 3.7 mmol/L (3.5-5.1); Sodium Level 137 mmol/L (136-145)
[2021-06-26 10:31] LABS: Hepatitis B Surface Antibody Non-Reactive; Hepatitis B Surface Antigen Non-Reactive (Nonreactive)
[2021-06-30 08:09] LABS: QNTFERON TB Mitogen Value > 10.00 IU/mL (.); QNTFERON TB Nil Value 0.01 IU/mL (.); QNTFERON TB1+ Ag Value 0.01 IU/mL (.); QNTFERON TB2+ Ag Value 0.02 IU/mL (.)
[2021-06-30 09:07] LABS: Hepatitis B Core Ab Total Negative (Negative); QNTIFERON TB Positive Criteria Negative (Negative)
== END ==
PROVIDERS: PCP Family Medicine Geriatric Medicine; Referring Provider Dermatology; Visit Provider Dermatology
DX: Z79.899 Other long term (current) drug therapy (principal); L29.8 Other pruritus; L50.3 Dermatographic urticaria; L30.8 Other specified dermatitis; L28.1 Prurigo nodularis; D22.5 Melanocytic nevi of trunk
CPT/HCPCS: 36415; 80048; 80076; 85025; 86480; 86704; 86706; 87340

== ENCOUNTER 2021-07-10 10:30 | Outpatient (CLI) | payer MEDICARE, BC, SELFPAY ==
[2021-07-10 12:20] LABS: Absolute Lymphocyte Count 1.35 X10^3/uL (0.83-4.51); Absolute Neutrophil Count 4.2 X10^3/uL (2.0-7.7); Basophil# 0.05 X10^3/uL; Basophil% 0.8 % (0-1); Eosinophil# 0.17 X10^3/uL; Eosinophils% 2.6 % (0-5); Hematocrit 45.4 % (40-54); Hemoglobin 15.3 g/dL (13.0-16.5); Lymphocyte # 1.35 X10^3/ul (0.83-4.51); Lymphocyte % 20.5 % (19-41); Mean Corp Hgb Conc 33.7 g/dL (32-36); Mean Corpuscular Hgb 29.8 pg (27.0-32.0); Mean Corpuscular Volume 88.5 fL (80-94); Mean Platelet Vol. 8.7 fl (6.2-12.0); Monocyte# 0.76 X10^3/uL; Monocyte% 11.6 % (0-10); NRBC Flagged by Analyzer 0 % (0-5); Neutrophil # 4.21 X10^3/uL (2.7-7.7); Neutrophil % 63.9 % (47-70); Platelet Count 310 K/mm3 (150-450); RBC Distribution Width SD 51.2 fl (35.1-43.9); Red Blood Count 5.13 M/mm3 (4.6-6.2); White Blood Count 6.6 K/mm3 (4.4-11.0)
[2021-07-10 12:51] LABS: AST(SGOT) 21 U/L (15-37); Alanine Aminotransfer ALT/SGPT 37 U/L (16-61); Albumin, Serum 3.5 g/dL (3.2-5.0); Alkaline Phosphatase 113 U/L (45-117); Bilirubin, Direct 0.16 mg/dL (0.00-0.30); Globulin 3.6 g/dL (2.2-4.2); Protein, Total 7.1 g/dL (6.4-8.2)
== END 2021-07-10 23:59 | disposition home or self-care (01) ==
LOC: MTLAB 10:33
PROVIDERS: PCP Family Medicine Geriatric Medicine; Referring Provider Dermatology; Visit Provider Dermatology
DX: Z79.899 Other long term (current) drug therapy (principal)
CPT/HCPCS: 80076; 85025

== ENCOUNTER 2021-08-10 09:49 | Outpatient (CLI) | payer MEDICARE, BC, SELFPAY ==
[2021-08-10 11:04] LABS: Absolute Lymphocyte Count 1.11 X10^3/uL (0.83-4.51); Absolute Neutrophil Count 4.1 X10^3/uL (2.0-7.7); Basophil# 0.04 X10^3/uL; Basophil% 0.6 % (0-1); Eosinophil# 0.16 X10^3/uL; Eosinophils% 2.6 % (0-5); Hematocrit 40.8 % (40-54); Hemoglobin 13.9 g/dL (13.0-16.5); Lymphocyte # 1.11 X10^3/ul (0.83-4.51); Mean Corp Hgb Conc 34.1 g/dL (32-36); Mean Corpuscular Hgb 30.2 pg (27.0-32.0); Mean Corpuscular Volume 88.7 fL (80-94); Mean Platelet Vol. 8.7 fl (6.2-12.0); Monocyte# 0.69 X10^3/uL; Monocyte% 11.2 % (0-10); NRBC Flagged by Analyzer 0 % (0-5); Neutrophil # 4.14 X10^3/uL (2.7-7.7); Neutrophil % 67.1 % (47-70); Platelet Count 290 K/mm3 (150-450); RBC Distribution Width CV 15.7 % (11.6-14.6); RBC Distribution Width SD 49.9 fl (35.1-43.9); White Blood Count 6.2 K/mm3 (4.4-11.0)
[2021-08-10 11:20] LABS: AST(SGOT) 25 U/L (15-37); Alanine Aminotransfer ALT/SGPT 39 U/L (16-61); Albumin, Serum 3.6 g/dL (3.2-5.0); Alkaline Phosphatase 123 U/L (45-117); Bilirubin, Direct 0.17 mg/dL (0.00-0.30); Globulin 3.3 g/dL (2.2-4.2); Protein, Total 6.9 g/dL (6.4-8.2)
== END 2021-08-10 23:59 | disposition short-term general hospital (02) ==
LOC: MTLAB 09:50
PROVIDERS: PCP Family Medicine Geriatric Medicine; Referring Provider Dermatology; Visit Provider Dermatology
DX: Z79.899 Other long term (current) drug therapy (principal)
CPT/HCPCS: 36415; 80076; 85025

== ENCOUNTER 2021-08-15 09:50 | Outpatient (CLI) | payer MEDICARE, BC, SELFPAY ==
[2021-08-15 13:36] LABS: PSA,Total- Diagnostic 3.61 ng/mL (0.0-4.0)
== END 2021-08-15 23:59 | disposition home or self-care (01) ==
LOC: MTLAB 09:51
PROVIDERS: PCP Family Medicine Geriatric Medicine; Referring Provider Urology; Visit Provider Urology
DX: R97.20 Elevated prostate specific antigen [PSA] (principal)
CPT/HCPCS: 36415; 84153

== ENCOUNTER 2021-09-14 11:39 | Outpatient (CLI) | payer MEDICARE, BC, SELFPAY ==
[2021-09-14 12:26] LABS: Absolute Lymphocyte Count 1.44 X10^3/uL (0.83-4.51); Absolute Neutrophil Count 4.3 X10^3/uL (2.0-7.7); Basophil# 0.05 X10^3/uL; Basophil% 0.7 % (0-1); Eosinophil# 0.23 X10^3/uL; Eosinophils% 3.4 % (0-5); Hematocrit 43.6 % (40-54); Hemoglobin 14.9 g/dL (13.0-16.5); Lymphocyte # 1.44 X10^3/ul (0.83-4.51); Lymphocyte % 21.3 % (19-41); Mean Corp Hgb Conc 34.2 g/dL (32-36); Mean Corpuscular Hgb 30.7 pg (27.0-32.0); Mean Corpuscular Volume 89.7 fL (80-94); Mean Platelet Vol. 8.8 fl (6.2-12.0); Monocyte# 0.73 X10^3/uL; Monocyte% 10.8 % (0-10); NRBC Flagged by Analyzer 0 % (0-5); Neutrophil # 4.25 X10^3/uL (2.7-7.7); Neutrophil % 62.9 % (47-70); Platelet Count 321 K/mm3 (150-450); RBC Distribution Width CV 14.8 % (11.6-14.6); RBC Distribution Width SD 47.5 fl (35.1-43.9); Red Blood Count 4.86 M/mm3 (4.6-6.2); White Blood Count 6.8 K/mm3 (4.4-11.0)
[2021-09-14 13:12] LABS: AST(SGOT) 30 U/L (15-37); Alanine Aminotransfer ALT/SGPT 36 U/L (16-61); Albumin, Serum 3.6 g/dL (3.2-5.0); Alkaline Phosphatase 122 U/L (45-117); Anion Gap 3 (5-15); BUN 17 mg/dL (7-18); BUN/Creat Ratio 15.7 RATIO (10-20); Bilirubin, Direct 0.08 mg/dL (0.00-0.30); Calcium,Total 9.3 mg/dL (8.5-10.1); Chloride 107 mmol/L (98-107); Creatinine, Serum 1.08 mg/dL (0.70-1.30); EST Glomerular Filtration Rate 72 mL/min (>60); Est Glom Filt Rate - Afr Amer 87 mL/min (>60); Globulin 3.3 g/dL (2.2-4.2); Glucose 94 mg/dL (74-106); Potassium 4.2 mmol/L (3.5-5.1); Protein, Total 6.9 g/dL (6.4-8.2); Sodium Level 138 mmol/L (136-145)
== END 2021-09-14 23:59 | disposition home or self-care (01) ==
LOC: BIMLAB 11:40
PROVIDERS: PCP Family Medicine Geriatric Medicine; Referring Provider Dermatology; Visit Provider Dermatology
DX: Z79.899 Other long term (current) drug therapy (principal)
CPT/HCPCS: 36415; 80048; 80076; 85025

== ENCOUNTER → 2021-12-12 | Outpatient (CLI) | payer MEDICARE, BC, SELFPAY ==
[2021-12-12 12:34] LABS: Absolute Lymphocyte Count 1.08 X10^3/uL (0.83-4.51); Absolute Neutrophil Count 3.5 X10^3/uL (2.0-7.7); Basophil# 0.04 X10^3/uL; Basophil% 0.8 % (0-1); Eosinophil# 0.13 X10^3/uL; Eosinophils% 2.5 % (0-5); Hematocrit 42.3 % (40-54); Hemoglobin 14.1 g/dL (13.0-16.5); Lymphocyte # 1.08 X10^3/ul (0.83-4.51); Lymphocyte % 20.7 % (19-41); Mean Corp Hgb Conc 33.3 g/dL (32-36); Mean Corpuscular Hgb 30.1 pg (27.0-32.0); Mean Corpuscular Volume 90.4 fL (80-94); Mean Platelet Vol. 9.3 fl (6.2-12.0); Monocyte# 0.41 X10^3/uL; Monocyte% 7.8 % (0-10); NRBC Flagged by Analyzer 0 % (0-5); Neutrophil # 3.53 X10^3/uL (2.7-7.7); Neutrophil % 67.4 % (47-70); Platelet Count 290 K/mm3 (150-450); RBC Distribution Width SD 52.3 fl (35.1-43.9); Red Blood Count 4.68 M/mm3 (4.6-6.2); White Blood Count 5.2 K/mm3 (4.4-11.0)
[2021-12-12 12:42] LABS: ALB/GLOB Ratio 1.1 RATIO (0.9-2.4); AST(SGOT) 24 U/L (15-37); Alanine Aminotransfer ALT/SGPT 37 U/L (16-61); Albumin, Serum 3.6 g/dL (3.2-5.0); Alkaline Phosphatase 100 U/L (45-117); Anion Gap 5 (5-15); BUN 19 mg/dL (7-18); BUN/Creat Ratio 16.5 RATIO (10-20); Calcium,Total 8.7 mg/dL (8.5-10.1); Chloride 105 mmol/L (98-107); Creatinine, Serum 1.15 mg/dL (0.70-1.30); EST Glomerular Filtration Rate 67 mL/min (>60); Est Glom Filt Rate - Afr Amer 81 mL/min (>60); Globulin 3.2 g/dL (2.2-4.2); Glucose 154 mg/dL (74-106); Protein, Total 6.8 g/dL (6.4-8.2); Sodium Level 138 mmol/L (136-145)
[2021-12-12 12:45] LABS: Vitamin D,25 Hydroxy 23.4 ng/mL
[2021-12-13 11:12] LABS: Hemoglobin A1c 5.9 % (3.8-5.6)
== END | disposition home or self-care (01) ==
LOC: POLAB3 09:31
PROVIDERS: PCP Family Medicine Geriatric Medicine; Visit Provider Family Medicine Geriatric Medicine
DX: E55.9 Vitamin D deficiency, unspecified (principal); I10 Essential (primary) hypertension; Z12.5 Encounter for screening for malignant neoplasm of prostate; R79.9 Abnormal finding of blood chemistry, unspecified
CPT/HCPCS: 36415; 80053; 82306; 83036; 85025

== ENCOUNTER → 2021-12-25 | Outpatient (CLI) | payer MEDICARE, BC, SELFPAY ==
[2021-12-25 12:48] LABS: AST(SGOT) 23 U/L (15-37); Alanine Aminotransfer ALT/SGPT 30 U/L (16-61); Albumin, Serum 3.4 g/dL (3.2-5.0); Alkaline Phosphatase 98 U/L (45-117); Anion Gap 4 (5-15); BUN 14 mg/dL (7-18); BUN/Creat Ratio 12.6 RATIO (10-20); Bilirubin, Direct 0.12 mg/dL (0.00-0.30); Calcium,Total 8.8 mg/dL (8.5-10.1); Chloride 104 mmol/L (98-107); Creatinine, Serum 1.11 mg/dL (0.70-1.30); EST Glomerular Filtration Rate 70 mL/min (>60); Est Glom Filt Rate - Afr Amer 85 mL/min (>60); Globulin 3.2 g/dL (2.2-4.2); Glucose 124 mg/dL (74-106); Potassium 3.9 mmol/L (3.5-5.1); Protein, Total 6.6 g/dL (6.4-8.2); Sodium Level 138 mmol/L (136-145)
[2021-12-25 12:50] LABS: Absolute Lymphocyte Count 0.71 X10^3/uL (0.83-4.51); Absolute Neutrophil Count 2.2 X10^3/uL (2.0-7.7); Basophil# 0.03 X10^3/uL; Basophil% 0.8 % (0-1); Eosinophil# 0.06 X10^3/uL; Eosinophils% 1.5 % (0-5); Hematocrit 41.5 % (40-54); Hemoglobin 13.9 g/dL (13.0-16.5); Lymphocyte # 0.71 X10^3/ul (0.83-4.51); Lymphocyte % 18.3 % (19-41); Mean Corp Hgb Conc 33.5 g/dL (32-36); Mean Corpuscular Hgb 30.3 pg (27.0-32.0); Mean Corpuscular Volume 90.4 fL (80-94); Mean Platelet Vol. 9.1 fl (6.2-12.0); Monocyte# 0.81 X10^3/uL; Monocyte% 20.9 % (0-10); NRBC Flagged by Analyzer 0 % (0-5); Neutrophil # 2.23 X10^3/uL (2.7-7.7); Neutrophil % 57.5 % (47-70); Platelet Count 244 K/mm3 (150-450); RBC Distribution Width CV 16.5 % (11.6-14.6); RBC Distribution Width SD 54.3 fl (35.1-43.9); Red Blood Count 4.59 M/mm3 (4.6-6.2); White Blood Count 3.9 K/mm3 (4.4-11.0)
== END | disposition home or self-care (01) ==
LOC: MTLAB 10:45
PROVIDERS: PCP Family Medicine Geriatric Medicine; Referring Provider Dermatology; Visit Provider Dermatology
DX: Z79.899 Other long term (current) drug therapy (principal); L29.8 Other pruritus; L50.3 Dermatographic urticaria; L30.8 Other specified dermatitis; L28.1 Prurigo nodularis
CPT/HCPCS: 36415; 80048; 80076; 85025

== ENCOUNTER → 2021-12-26 | Outpatient (CLI) | payer MEDICARE, BC, SELFPAY | END | disposition home or self-care (01) | LOC: PSN 11:27 | PROVIDERS: PCP Family Medicine Geriatric Medicine; Visit Provider Family Medicine Geriatric Medicine | DX: U07.1 COVID-19 (principal) | CPT/HCPCS: 87635; 87804; 87807; C9803; U0003; U0005 ==

== ENCOUNTER → 2022-06-19 | Outpatient (CLI) | payer MEDICARE, BC, SELFPAY ==
[2022-06-19 13:19] LABS: Absolute Lymphocyte Count 1.26 X10^3/uL (0.83-4.51); Basophil# 0.04 X10^3/uL; Basophil% 0.7 % (0-1); Eosinophil# 0.19 X10^3/uL; Eosinophils% 3.2 % (0-5); Hematocrit 43.7 % (40-54); Hemoglobin 14.7 g/dL (13.0-16.5); Lymphocyte # 1.26 X10^3/ul (0.83-4.51); Lymphocyte % 21.2 % (19-41); Mean Corp Hgb Conc 33.6 g/dL (32-36); Mean Corpuscular Hgb 29.6 pg (27.0-32.0); Mean Corpuscular Volume 88.1 fL (80-94); Mean Platelet Vol. 9.5 fl (6.2-12.0); Monocyte# 0.44 X10^3/uL; Monocyte% 7.4 % (0-10); NRBC Flagged by Analyzer 0 % (0-5); Neutrophil # 3.95 X10^3/uL (2.7-7.7); Neutrophil % 66.7 % (47-70); Platelet Count 298 K/mm3 (150-450); RBC Distribution Width SD 47.8 fl (35.1-43.9); Red Blood Count 4.96 M/mm3 (4.6-6.2); White Blood Count 5.9 K/mm3 (4.4-11.0)
[2022-06-19 13:33] LABS: Vitamin D,25 Hydroxy 30.3 ng/mL
[2022-06-19 15:01] LABS: ALB/GLOB Ratio 1.1 RATIO (0.9-2.4); AST(SGOT) 20 U/L (15-37); Alanine Aminotransfer ALT/SGPT 31 U/L (16-61); Albumin, Serum 3.6 g/dL (3.2-5.0); Alkaline Phosphatase 102 U/L (45-117); Anion Gap 10 (5-15); BUN 16 mg/dL (7-18); BUN/Creat Ratio 14.2 RATIO (10-20); Calcium,Total 8.8 mg/dL (8.5-10.1); Chloride 103 mmol/L (98-107); Creatinine, Serum 1.13 mg/dL (0.70-1.30); EST Glomerular Filtration Rate 68 mL/min (>60); Est Glom Filt Rate - Afr Amer 83 mL/min (>60); Globulin 3.3 g/dL (2.2-4.2); Glucose 168 mg/dL (74-106); Potassium 3.7 mmol/L (3.5-5.1); Protein, Total 6.9 g/dL (6.4-8.2); Sodium Level 137 mmol/L (136-145); Thyroid Stim Hormone (TSH) 1.83 uIU/mL (0.358-3.74)
== END | disposition home or self-care (01) ==
LOC: POLAB3 09:57
PROVIDERS: PCP Family Medicine Geriatric Medicine; Visit Provider Family Medicine Geriatric Medicine
DX: R73.9 Hyperglycemia, unspecified (principal); I10 Essential (primary) hypertension; E55.9 Vitamin D deficiency, unspecified
CPT/HCPCS: 36415; 80053; 82306; 83036; 84443; 85025

== ENCOUNTER → 2022-06-26 | Outpatient (CLI) | payer MEDICARE, BC, SELFPAY ==
[2022-06-26 13:10] LABS: Absolute Neutrophil Count 3.8 X10^3/uL (2.0-7.7); Basophil# 0.04 X10^3/uL; Basophil% 0.7 % (0-1); Eosinophil# 0.19 X10^3/uL; Eosinophils% 3.1 % (0-5); Hematocrit 42.5 % (40-54); Hemoglobin 14.4 g/dL (13.0-16.5); Lymphocyte % 21.3 % (19-41); Mean Corp Hgb Conc 33.9 g/dL (32-36); Mean Corpuscular Hgb 29.9 pg (27.0-32.0); Mean Corpuscular Volume 88.2 fL (80-94); Mean Platelet Vol. 9.3 fl (6.2-12.0); Monocyte% 11.5 % (0-10); NRBC Flagged by Analyzer 0 % (0-5); Neutrophil # 3.82 X10^3/uL (2.7-7.7); Neutrophil % 62.6 % (47-70); Platelet Count 307 K/mm3 (150-450); RBC Distribution Width CV 14.9 % (11.6-14.6); RBC Distribution Width SD 47.5 fl (35.1-43.9); Red Blood Count 4.82 M/mm3 (4.6-6.2); White Blood Count 6.1 K/mm3 (4.4-11.0)
== END | disposition home or self-care (01) ==
LOC: POLAB3 10:55
PROVIDERS: PCP Family Medicine Geriatric Medicine; Visit Provider Family Medicine Geriatric Medicine
DX: D64.9 Anemia, unspecified (principal)
CPT/HCPCS: 36415; 85025

== ENCOUNTER → 2022-12-17 | Outpatient (CLI) | payer MEDICARE, BC, SELFPAY | END | disposition home or self-care (01) | LOC: SL 19:45 | PROVIDERS: PCP Family Medicine Geriatric Medicine; Referring Provider Internal Medicine Pulmonary Disease; Visit Provider Internal Medicine Pulmonary Disease | DX: G47.33 Obstructive sleep apnea (adult) (pediatric) (principal) | CPT/HCPCS: 95811 ==

== ENCOUNTER → 2023-04-02 | Outpatient (CLI) | payer MEDICARE, BC, SELFPAY ==
--- NOTE | 2023-04-02 09:06 | NEURO ---
NCS and/or EMG Patient Report Ordering Doctor: Dash Rueda Chi DATE OF SERVICE: 04/02/23 Clinical Summary: 67 year old male presenting with complaints of numbness, tingling, and weakness in the hands. This EMG/NCS was performed to evaluate for right/left carpal tunnel syndrome. Nerve Conductions Summary: The right median-D2 SNAP was absent. The left median-D2 SNAP distal latency was prolonged with reduced amplitude. The right median-trent SNAP distal latency was prolonged. The right ulnar-D5 SNAP distal latency was prolonged with reduced amplitude. The right ulnar-trent SNAP amplitude was reduced. The right median-APB CMAP distal latency was prolonged with reduced amplitude. The left median-APB CMAP distal latency was prolonged. The median F-wave onset latency was prolonged bilaterally. Needle Examination Summary: There was increased insertional activity and increased spontaneous activity (positive sharp waves) in the right abductor pollicis brevis muscle. There was higher proportion of motor unit action potentials with increased amplitude, increased duration, polyphasia, and decreased recruitment in the right first dorsal interosseous, right flexor carpi ulnaris, and bilateral abductor pollicis brevis muscles. 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 Multi Select Codes Neurology Neurology Interp Codes: 14796-81 Musc test done w/n test comp (interp) (2) and 11186-95 Nrv cndj test 13/> studies (interp)
== END | disposition home or self-care (01) ==
PROVIDERS: PCP Family Medicine Geriatric Medicine; Referring Provider Family Medicine Geriatric Medicine; Visit Provider Family Medicine Geriatric Medicine
DX: G56.03 Carpal tunnel syndrome, bilateral upper limbs (principal)
CPT/HCPCS: 95886; 95913

== ENCOUNTER 2023-04-18 07:15 | Outpatient (RCR) | payer MEDICARE, BC, SELFPAY ==
--- NOTE | 2023-04-18 08:45 | HP.OTEVAL ---
Patient's Visit Information Visit Information Visit Information: ALONSO BEAN is a 67 year old M, referred to Occupational Therapy by Dr. Dash Rueda MD, with a diagnosis of CTS bilateral. Date of Evaluation: 04/18/23 Occupational Therapist: Betty Munson, ADÁN/Gabby, CHT Subjective Subjective: This 67 year old male was seen for OT eval with dx of bilateral CTS- pt did have nerve conduction test see below for results. pt states he has had symptoms for about 8 weeks- tingling/numbness waking him up at night and when driving long distances. Pt states Dr. newman'betsy wrist brace and did give him a shot-(maybe about two weeks ago) pt states this did not decrease his symptoms. Pt would like the constant ting/numbness to go away. Pain right hand: Current Pain Intensity: 2 Pain Intensity Range: 2 and 4 ROM Wrist: right 70/60 left 70/60 ROM Comments: pt demo ROM of forearm/wrist and digits WNL Strength Registered Appraiser: right 65# left 80# Lateral Pinch: right 16# left 16# Tripod Pinch: right 12# left 14# Sensation Thumb: right 4.17 left 2.83 Index: right 4.17 left 3.22 Middle: right 4.17 left 2.83 Ring: right 2.83 left 2.83 Little: right 2.83 left 2.83 Special Tests Median Nerve Compression Test: positive right/left Quick DASH-Disab of Arm,Shoulder& Hand Quick DASH Score: 53.3325 Carpal Tunnel Syndrome Total Score of Symptom & Functional Sections: 39 Goals Goal:: pt will demo a increase in right senior investigator strength by 10# to increase ind.with ADls and IADLs by d.c Goal:: pt will test on monofilaments at 2.83 indication decrease of compression by d.c Goal:: Pt will demo understanding of work/lifting and carry ergonomics to decrease stress on median nerve to increase pts independent with ADLs, IADLS and work tasks by d/c. Rehabilitation General Assessment: pt demo with positive CTS. Due to sensation loss and waking up at night with tingling pt would benefit from skilled OT services 1-2x week for 4 weeks to decrease pts symptoms of tingling and numbness. today therapist custom orthosis ed, in use and also instructed in median nerve glides to alleviate his symptoms. PT demo understanding and agree to POC. After todays session pt is open to seeking ortho to schedule a CTR. Rehabilitation Potential: Questionable Anticipated Interventions Anticipated Interventions: A/AAROM/PROM, Triggerpoint Release, Orthoses, Education re Diagnosis and Home Program Other Interventions: nerve glides Visit Plan Frequency: 1-2x /Week Duration: 4 Weeks TEXT: Thank you for the opportunity to evaluate your patient. For Medicare and Medicare HMO plans, please review the plan of care and approve it. It will need to be FAXED BACK to us at [phone] for Medicare purposes. Please let me know if there are questions or concerns regarding this plan of care. Physician Signature: Date:
--- NOTE | 2023-10-16 14:52 | HP.OT.NRP ---
Patient Information Patient Information: ALONSO BEAN was seen in my office for initial evaluation on 04/18/23. The following Plan of Care was established for this patient: POC Established Initial Frequency: 1-2x /Week Initial Duration: 4 Weeks Anticipated Interventions Anticipated Interventions: A/AAROM/PROM, Triggerpoint Release, Orthoses, Education re Diagnosis and Home Program Other Interventions: nerve glides Last Seen Last Seen: This patient was last seen in our office 04/18/23. Pertinent comments regarding their Occupational therapy will appear below: pt was seen for OT júnior. pt did not schedule further apts. Due to time lapse in services pt is d/c. At this point I will be discontinuing this patient from occupational therapy. I would be happy to see this patient again in the future if found appropriate by the physician. Thank you! Betty Munson, OTR/L, CHT
== END 2023-04-18 19:00 | disposition home or self-care (01) ==
LOC: OT 07:15
PROVIDERS: PCP Family Medicine Geriatric Medicine; Referring Provider Family Medicine Geriatric Medicine; Visit Provider Family Medicine Geriatric Medicine
DX: G56.03 Carpal tunnel syndrome, bilateral upper limbs (principal)
CPT/HCPCS: 97166; 97530

== ENCOUNTER 2023-05-08 08:19 | Day surgery (SDC) | payer MEDICARE, BC, SELFPAY ==
[2023-05-08] VITALS (9 sets, daily range): BP systolic 111–137; BP diastolic 68–77; PULSE 51–57; RESP 12–16; TEMP 36.4–36.9; O2SAT 91–97; BMI 30.5
[2023-05-08] MEDS: Lactated Ringers 1,000 ML 15 ML IV (08:55)
--- NOTE | 2023-05-08 09:10 | HP.PCM_ITS ---
HPI - General HPI Narrative ALONSO BEAN, is a 67 M who presents for right endoscopic carpal tunnel release. No changes to h and p. RAB and post op discussed. OK to go ahead, wrist marked. MR#: [id number] Acct: [id number] Name: ALONSO BEAN Rep #: [id number] : 1955 Provider: Dr. Aleks Yates MD Age/Sex: 67/M Location: [facility] [place] Status: Signed Intake Vital Signs 01/30/2307:33 04/25/2315:54 Height 6 ft 1 in 6 ft 1.5 in Weight: 235 lb 8 oz 217 lb BMI 31.0 28.2 BP 163/84 H Blood Pressure Location Rt brachial Position Sitting Respiration 17 Pulse 81 Pulse Source NIBP Temp 98.3 F Temp Source Temporal Pulse Oximetry (%) 97 Oxygen Delivery Method room air Intake Visit Reasons: BL carpal tunnel Is patient in pain?: Yes Pain scale (1-10): 9 Allergies gentamicin Allergy (Intermediate, Verified 04/25/23 15:54) PT UNSURE OF REACTION Medications lisinopril 10 mg-hydrochlorothiazide 12.5 mg tablet (Zestoretic) 1 tab PO DAILY 01/05/15 [History Confirmed 04/25/23] multivitamin with folic acid 400 mcg tablet (Thera) 1 tab PO DAILY 01/05/15 [History Confirmed 04/25/23] rosuvastatin 40 mg tablet 40 mg PO 04/25/23 [History Confirmed 04/25/23] tumeric 100 mg-kaley 150 mg-olive 50 mg-oreg 150 mg-caprylate capsule cap PO 04/25/23 [History Confirmed 04/25/23] PFSH Medical History (Updated 04/25/23 @ 15:58 by Jewell Conti) Bilateral carpal tunnel syndrome Cubital tunnel syndrome on right Surgical History (Updated 04/25/23 @ 15:57 by Jewell Conti) H/O lumbosacral spine surgery Family History (Updated 07/10/22 @ 08:07 by Delia Rose) Brother HypertensionFather Colon cancerMother Colon cancer Social History Smoking Status: Never smoker HPI BL carpal tunnel Details: Parts of this documentation were recorded by a scribe, this documentation accurately reflects the service provided and the decisions made by me, Dr. Aleks Yates MD 04/25/23 [id number]. ALONSO BEAN is a 67 year old M here today for bilat hand numbness, worse with leaf blower or mower, in the thumb and index fingers 'like hit the funny bone'. Had the nerve testing. some radiating up to the forearms, tried therapy and the brace without help, night splinting for right side feels better in the morning but gets worse during the day, in the forearm. no numbness in the pinky, hard to machine pecan picker vitamins. worsening over 2 months. RHD. 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 had wrist injections. no help. felt swollen. 2 weeks ago. Patient has a strong hand function no numbness or tingling into the fifth digit ever. Ortho Exam General General: Yes no acute distress Neurologic: Yes alert and Yes oriented x3 Psychologic: Yes reasonable and appropriate Right Wrist/Hand Skin/Wound: Yes CDI, No Swelling, No Ecchymosis, Yes nail intact and Yes capillary refill normal Right Wrist: Yes ROM-Extension 0-60, ROM-Flexion 0-80, ROM-Pronation 0-80, ROM- Supination 0-90, Tinel's and Phalen's; No tender to palpate 1st dorsal compartment, Thenar Atrophy or Hypothenar Atrophy Motor: EPL: 5, FDP-2: 5, 1st Dorsal Interosseous: 5 and APB: 4 Sensation: Radial: I, Ulnar: I and Median: D WRIST: mild tinel at elbow, neg compression test, neg wartenburg sign Left Wrist/Hand Skin/Wound: Yes CDI, No Swelling and No Ecchymosis Left Wrist: Yes ROM-Extension 0-60, Yes ROM-Flexion 0-80, Yes ROM-Pronation 0- 80, Yes ROM-Supination 0-90, Yes Tinel's and Yes Phalen's; No Thenar Atrophy and No Hypothenar Atrophy Motor: EPL: 5, FDP-2: 5, 1st Dorsal Interosseous: 5 and APB: 4 Sensation: Radial: I, Ulnar: I and Median: D WRIST: neg tinel at elbow, neg compression test, neg wartenburg sign Supplemental Info [facility]Neurology [address] [place] [place] [place] [address] MR#: [id number] Acct: [id number] Name: ALONSO BEAN Rep #: [id number] : 1955 67 From: Jose Taveras MD Referring Dr: Dash Rueda MD Status: REG CLI Location: PSN Date: 04/02/23 Sex: M C NCS and/or EMG Patient Report Ordering Doctor: Dash Rueda Chi DATE OF SERVICE: 04/02/23 Clinical Summary: 67 year old male presenting with complaints of numbness, tingling, and weakness in the hands. This EMG/NCS was performed to evaluate for right/left carpal tunnel syndrome. Nerve Conductions Summary: The right median-D2 SNAP was absent. The left median-D2 SNAP distal latency was prolonged with reduced amplitude. The right median-trent SNAP distal latency was prolonged. The right ulnar-D5 SNAP distal latency was prolonged with reduced amplitude. The right ulnar-trent SNAP amplitude was reduced. The right median-APB CMAP distal latency was prolonged with reduced amplitude. The left median-APB CMAP distal latency was prolonged. The median F-wave onset latency was prolonged bilaterally. Needle Examination Summary: There was increased insertional activity and increased spontaneous activity (positive sharp waves) in the right abductor pollicis brevis muscle. There was higher proportion of motor unit action potentials with increased amplitude, increased duration, polyphasia, and decreased recruitment in the right first dorsal interosseous, right flexor carpi ulnaris, and bilateral abductor pollicis brevis muscles. 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 Multi Select Codes Neurology Neurology Interp Codes: 29660-65 Musc test done w/n test comp (interp) (2) and 22610-27 Nrv cndj test 13/> studies (interp) Coding Level of Care Code Off vis,new,level 3 Diagnoses Cubital tunnel syndrome on right G56.21 Bilateral carpal tunnel syndrome G56.03 Assessment and Plan Assessment and Plan (1) Cubital tunnel syndrome on right: Status: Acute (2) Bilateral carpal tunnel syndrome: Status: Acute Plan: 67-year-old man with a bilateral severe median neuropathy at the wrists indicating carpal tunnel syndrome. The patient has signs and symptoms as well as physical evidence of this finding. They also have signs of cubital tunnel syndrome on the nerve conduction study as well as a mild Tinel's test on the right elbow but strong hand function and is not getting any sort of symptoms into the fifth digit. We talked about the pros and cons versus benefits of isolated carpal tunnel release as well as potentially adding on a right cubital tunnel release but I think it is reasonable to start with simply a carpal tunnel release and then see how that goes. The patient can try also offloading rest ice anti-inflammatories and nighttime splinting for cubital tunnel syndrome but I think that is not really causing him much in the way of symptoms still strong hand function and normal sensation in the hand there. Patient has failed multiple different conservative management options for carpal tunnel syndrome he would like to start with the right carpal tunnel release. We discussed the pros cons risks and benefits of open versus endoscopic. Endoscopic may have a higher rate of incomplete release but definitely quicker recovery in the literature and early return to function and work. He understands would like to go ahead with right endoscopic carpal tunnel release. No clearance needed. In addition I will delay this by a couple weeks at least to allow some time for the somewhat recent cortisone injection to diminish but this may slightly increase the infection risk. Pros and cons risks and benefits were discussed with the patient including but not limited to infection, pain, stiffness, bleeding, damage to surrounding structures, neurovascular injury, recurrence or retear, failure or wear of hardware or fixation, instability, fracture, deep vein thrombosis and pulmonary embolism, anesthetic risks, , patient dissatisfaction, need for further surgery and other risks. Patient understood and wished to proceed with surgery, and signed the informed consent documentation. [facility] Medical History (Updated 05/02/23 @ 13:08 by Cami Spencer) Back pain Bilateral carpal tunnel syndrome CPAP (continuous positive airway pressure) dependence Cubital tunnel syndrome on right High cholesterol History of edema Hypertension Non-smoker Wears glasses Wears hearing aid Home Medications lisinopril 10 mg-hydrochlorothiazide 12.5 mg tablet (Zestoretic) 1 tab PO DAILY 01/05/15 [History Last Taken Unknown] multivitamin with folic acid 400 mcg tablet (Thera) 1 tab PO DAILY 01/05/15 [History Last Taken Unknown] rosuvastatin 40 mg tablet 40 mg PO QHS 04/25/23 [History Last Taken Unknown] cetirizine 10 mg capsule (Zyrtec) 10 mg PO BID 05/02/23 [History Last Taken Unknown] vit [id number]-[id number] 500 mg-50 mg-25 mg-40 mg tablet (Bioflex) 1 tab PO DAILY 05/02/23 [History Last Taken Unknown] Allergy/AdvReac Type Severity Reaction Status Date / Time gentamicin Allergy Intermediate PT UNSURE Verified 05/02/23 13:01 OF REACTION Family History (Updated 07/10/22 @ 08:07 by Delia Rose) Brother Hypertension Father Colon cancer Mother Colon cancer Surgical History (Updated 05/02/23 @ 13:08 by Cami Spencer) H/O lumbosacral spine surgery Hx of colonoscopy Social History Smoking Status: Never smoker Vital Signs Vital Signs Vital Signs: 05/08/23 08:51 05/08/23 08:51 Temperature 97.7 F L Temperature Source Temporal Pulse Rate 51 L Respiratory Rate 16 Respiratory Pattern Normal Blood Pressure 137/69 H Blood Pressure Mean 91 Blood Pressure Source Monitor Blood Pressure Position Semi-Fowlers Blood Pressure Location Left Arm Pulse Ox 97 Oxygen Delivery Method Room Air Weight Weight: 231 lb 7.766 oz Body Mass Index (BMI) 30.5
[2023-05-08] MEDS: Cefazolin 2 GM in 0.9% Normal Saline (100mL Bag) 100 ML IV (09:37)
[2023-05-08] MEDS: Bupivacaine 0.25% 30 ML Vial (09:50)
--- NOTE | 2023-05-08 10:03 | OP.PCM_ITS ---
Problems Associated Problem List Diagnoses (1) Bilateral carpal tunnel syndrome: Report of Operation Date of Procedure: 05/08/23 Pre-Operative Diagnosis: right carpal tunnel syndrome Post-Operative Diagnosis: same Surgery/Procedure Performed:: right endoscopic carpal tunnel release Surgeon: Aleks Yates Type of Anesthesia: MAC/Supplemental/Local Anesthesiologist: Jason Couch Estimated Blood Loss (mL): 10 Description of Procedure: Patient was brought to the operating room theater.? The patient was administered 2g iv ancef prior to the start of the procedure.? Placed supine on the operating room table.? Anesthesia induced.? SCDs on the legs.? Tourniquet applied to the right upper operative extremity, appropriately padded. Arm table used. Operative extremity prepped and draped in the usual sterile fashion with chlorhexidine- based prep solution allowing over 3 minutes drying time prior to draping.? Preoperative timeout performed to confirm the site patient and the surgery. I used the Arthex center line endoscopic (gracy scope) carpal tunnel kit / technique. 6cc 0.25% bupivicaine at incision site. ? I made a transverse 2 cm incision in line with the? transverse wrist crease.? This was in line with the fourth digit.? I carried the dissection down through skin and subcutaneous tis yandy achieved meticulous hemostasis. Just ulnar to palmaris tendon.? I incised the antebrachial fascia.? I passed sequential dilators into the carpal tunnel along the radial border of the Guyon's canal aiming for the fourth digit with the hand in extension. I used a synovial elevator to identify the transverse fibers of the transverse carpal tunnel ligament.? Passed the scope into the carpal tunnel. Once I had identified the full proximal and distal extent of the ligament I fully released the ligament under direct visualization by deploying the blade and slowly withdrawing the scope made sequential passes until I no longer felt tension as well as the entire extent of the ligament was released under direct visualization.? Sounded the tunnel with ramirez tenotomy scissors, complete release, no bands. Arthroscope light was more visible through the skin. Pictures taken and saved before and after release. Wound thoroughly irrigated.? Meticulous hemostasis achieved.? Thorough irrigation.? ? Incisions closed with 3-0 nylon for the skin.?Skin was cleaned and dried. adaptic 4x4 gauze and deysi. Patient woken up,? transferred off the operating room table and taken to postanesthetic care unit in stable condition. All sponge needle instrument counts were correct no complications.? Plan for the patient to be discharged home according to day surgery criteria when they are comfortable. Follow-up in the office in 2 days time. Gentle ROM hand and elbow no heavy lifting. Complications none Admit VTE Documentation VTE Present on Admission: No VTE Mechan Device Prophylaxis: SCD's VTE Pharm Prophylaxis ordered?: No Reason prophylaxis not ordered:: Treatment Not Indicated Procedures Musculoskeletal 20xxx-29xxx: 98517 WRIST ENDOSCOPY/SURGERY
--- NOTE | 2023-05-08 10:05 | DCINST_ITS ---
Discharge Instructions Diet Discharge Diet: No restrictions Activity Lifting Restrictions: no heavy lifting or gripping Keep extremity elevated above heart level: Operative Extremity Dressing / Incision Call your doctor if your incision/area has: Continuous Slow Oozing, Sudden Increased Bleeding, Increased Pain/ Swelling, Increased Redness, Foul Smelling Discharge and Swelling at the incision site Change Dressing in: leave in place till F/U Follow Up Care Please Follow Up With: Aleks Yates MD When: 2 days Test Results: Test results from this visit will be discussed in further detail at your follow- up appointment, if applicable. Discharge Plan Admission Attending Provider: Aleks Yates Primary Care Provider: Dash Rueda Chi Discharge Orders/Prescriptions Prescriptions: No Action rosuvastatin 40 mg tablet 40 mg PO QHS Patient Comments: take 1 tablet by mouth once daily lisinopril-hydrochlorothiazide [Zestoretic] 1 TABLET tablet 1 tab PO DAILY multivitamin with folic acid [Thera] 1 TABLET tablet 1 tab PO DAILY Bioflex 037-12-24-40 mg tablet 1 tab PO DAILY Zyrtec 10 mg capsule 10 mg PO BID Referrals / Follow Up: Aleks Yates MD [Med Staff - Active Staff] - Dash Rueda Chi, MD [Primary Care Provider] - Disposition Disposition (needs filled in before D/C Order can be placed): Home, Self Care
== END 2023-05-08 11:46 | disposition home or self-care (01) ==
LOC: SDC 08:21 → AC 08:23
PROVIDERS: PCP Family Medicine Geriatric Medicine; Referring Provider Orthopaedic Surgery Sports Medicine; Visit Provider Orthopaedic Surgery Sports Medicine
PROC: (CPT 29848; principal; 2023-05-08 09:45)
DX: G56.03 Carpal tunnel syndrome, bilateral upper limbs (principal); I10 Essential (primary) hypertension; E78.00 Pure hypercholesterolemia, unspecified; Z79.899 Other long term (current) drug therapy
CPT/HCPCS: 29848; 01810; J7120; J2405

== ENCOUNTER → 2023-06-11 | Outpatient (CLI) | payer MEDICARE, BC, SELFPAY ==
[2023-06-11 11:10] LABS: Absolute Lymphocyte Count 1.45 X10^3/uL (0.83-4.51); Absolute Neutrophil Count 3.1 X10^3/uL (2.0-7.7); Basophil# 0.05 X10^3/uL; Basophil% 0.9 % (0-1); Eosinophil# 0.36 X10^3/uL; Eosinophils% 6.4 % (0-5); Hematocrit 46.1 % (40-54); Hemoglobin 15.7 g/dL (13.0-16.5); Lymphocyte # 1.45 X10^3/ul (0.83-4.51); Lymphocyte % 25.9 % (19-41); Mean Corp Hgb Conc 34.1 g/dL (32-36); Mean Corpuscular Hgb 30.7 pg (27.0-32.0); Mean Corpuscular Volume 90.2 fL (80-94); Mean Platelet Vol. 8.7 fl (6.2-12.0); Monocyte# 0.56 X10^3/uL; NRBC Flagged by Analyzer 0 % (0-5); Neutrophil # 3.14 X10^3/uL (2.7-7.7); Neutrophil % 56.3 % (47-70); Platelet Count 270 K/mm3 (150-450); RBC Distribution Width CV 14.6 % (11.6-14.6); RBC Distribution Width SD 48.3 fl (35.1-43.9); Red Blood Count 5.11 M/mm3 (4.6-6.2); White Blood Count 5.6 K/mm3 (4.4-11.0)
[2023-06-11 12:52] LABS: Vitamin D,25 Hydroxy 27.3 ng/mL
[2023-06-11 13:08] LABS: ALB/GLOB Ratio 1.1 RATIO (0.9-2.4); AST(SGOT) 28 U/L (15-37); Alanine Aminotransfer ALT/SGPT 34 U/L (16-61); Albumin, Serum 3.8 g/dL (3.2-5.0); Alkaline Phosphatase 100 U/L (45-117); Anion Gap 5 (5-15); BUN 12 mg/dL (7-18); BUN/Creat Ratio 10.7 RATIO (10-20); Calcium,Total 8.7 mg/dL (8.5-10.1); Chloride 104 mmol/L (98-107); Creatinine, Serum 1.12 mg/dL (0.70-1.30); EST Glomerular Filtration Rate 69 mL/min (>60); Est Glom Filt Rate - Afr Amer 83 mL/min (>60); Globulin 3.5 g/dL (2.2-4.2); Glucose 128 mg/dL (74-106); Potassium 3.8 mmol/L (3.5-5.1); Protein, Total 7.3 g/dL (6.4-8.2); Sodium Level 138 mmol/L (136-145); Thyroid Stim Hormone (TSH) 1.75 uIU/mL (0.358-3.74)
== END | disposition home or self-care (01) ==
LOC: POLAB3 10:52
PROVIDERS: PCP Family Medicine Geriatric Medicine; Visit Provider Family Medicine Geriatric Medicine
DX: I10 Essential (primary) hypertension (principal); E55.9 Vitamin D deficiency, unspecified
CPT/HCPCS: 36415; 80053; 82306; 84443; 85025

== ENCOUNTER 2023-10-25 11:31 | Outpatient (CLI) | payer MEDICARE, BC, SELFPAY | END 2023-10-25 23:59 | disposition home or self-care (01) | LOC: PSN 11:32 | PROVIDERS: PCP Family Medicine Geriatric Medicine; Referring Provider Family Medicine Geriatric Medicine; Visit Provider Family Medicine Geriatric Medicine | DX: R68.83 Chills (without fever) (principal) | CPT/HCPCS: 87631 ==

== ENCOUNTER → 2023-12-16 | Outpatient (CLI) | payer MEDICARE, BC, SELFPAY ==
[2023-12-16 12:32] LABS: Absolute Lymphocyte Count 1.71 X10^3/uL (0.83-4.51); Basophil# 0.05 X10^3/uL; Basophil% 0.7 % (0-1); Eosinophil# 0.31 X10^3/uL; Eosinophils% 4.5 % (0-5); Hemoglobin 15.9 g/dL (13.0-16.5); Lymphocyte # 1.71 X10^3/ul (0.83-4.51); Mean Corp Hgb Conc 33.8 g/dL (32-36); Mean Corpuscular Hgb 30.6 pg (27.0-32.0); Mean Corpuscular Volume 90.4 fL (80-94); Mean Platelet Vol. 8.9 fl (6.2-12.0); Monocyte# 0.74 X10^3/uL; Monocyte% 10.8 % (0-10); NRBC Flagged by Analyzer 0 % (0-5); Neutrophil # 3.99 X10^3/uL (2.7-7.7); Neutrophil % 58.3 % (47-70); Platelet Count 262 K/mm3 (150-450); RBC Distribution Width CV 14.2 % (11.6-14.6); RBC Distribution Width SD 46.5 fl (35.1-43.9); White Blood Count 6.9 K/mm3 (4.4-11.0)
[2023-12-16 13:08] LABS: ALB/GLOB Ratio 1.1 RATIO (0.9-2.4); AST(SGOT) 26 U/L (15-37); Alanine Aminotransfer ALT/SGPT 36 U/L (16-61); Albumin, Serum 3.7 g/dL (3.2-5.0); Alkaline Phosphatase 96 U/L (45-117); Anion Gap 4 (5-15); BUN 19 mg/dL (7-18); BUN/Creat Ratio 17.4 RATIO (10-20); Calcium,Total 9.2 mg/dL (8.5-10.1); Chloride 105 mmol/L (98-107); Creatinine, Serum 1.09 mg/dL (0.70-1.30); EST Glomerular Filtration Rate 71 mL/min (>60); Est Glom Filt Rate - Afr Amer 86 mL/min (>60); Globulin 3.3 g/dL (2.2-4.2); Glucose 93 mg/dL (74-106); PSA,Total - Annual Screen 3.11 ng/mL (0.00-4.00); Potassium 3.7 mmol/L (3.5-5.1); Sodium Level 136 mmol/L (136-145); Thyroid Stim Hormone (TSH) 1.72 uIU/mL (0.358-3.74)
== END | disposition home or self-care (01) ==
LOC: LAB 11:56
PROVIDERS: PCP Family Medicine Geriatric Medicine; Referring Provider Family Medicine Geriatric Medicine; Visit Provider Family Medicine Geriatric Medicine
DX: Z12.5 Encounter for screening for malignant neoplasm of prostate (principal); I10 Essential (primary) hypertension
CPT/HCPCS: 36415; 80053; 84153; 84443; 85025; G0103

== ENCOUNTER → 2024-06-22 | Outpatient (CLI) | payer MEDICARE, BC, SELFPAY ==
[2024-06-22 09:31] LABS: Absolute Neutrophil Count 3.9 X10^3/uL (2.0-7.7); Basophil# 0.05 X10^3/uL; Basophil% 0.8 % (0-1); Eosinophil# 0.32 X10^3/uL; Eosinophils% 5.1 % (0-5); Hematocrit 44.6 % (40-54); Hemoglobin 15.1 g/dL (13.0-16.5); Lymphocyte % 22.4 % (19-41); Mean Corp Hgb Conc 33.9 g/dL (32-36); Mean Corpuscular Hgb 30.9 pg (27.0-32.0); Mean Corpuscular Volume 91.2 fL (80-94); Mean Platelet Vol. 8.8 fl (6.2-12.0); NRBC Flagged by Analyzer 0 % (0-5); Neutrophil # 3.93 X10^3/uL (2.7-7.7); Neutrophil % 63.1 % (47-70); Platelet Count 277 K/mm3 (150-450); RBC Distribution Width CV 13.5 % (11.6-14.6); RBC Distribution Width SD 45.2 fl (35.1-43.9); Red Blood Count 4.89 M/mm3 (4.6-6.2); White Blood Count 6.2 K/mm3 (4.4-11.0)
[2024-06-22 10:18] LABS: ALB/GLOB Ratio 1.1 RATIO (0.9-2.4); AST(SGOT) 23 U/L (15-37); Alanine Aminotransfer ALT/SGPT 32 U/L (16-61); Albumin, Serum 3.6 g/dL (3.2-5.0); Alkaline Phosphatase 101 U/L (45-117); Anion Gap 5 (5-15); BUN 15 mg/dL (7-18); BUN/Creat Ratio 14.3 RATIO (10-20); Calcium,Total 8.8 mg/dL (8.5-10.1); Chloride 106 mmol/L (98-107); Creatinine, Serum 1.05 mg/dL (0.70-1.30); EST Glomerular Filtration Rate 74 mL/min (>60); Est Glom Filt Rate - Afr Amer 90 mL/min (>60); Globulin 3.4 g/dL (2.2-4.2); Glucose 170 mg/dL (74-106); Potassium 3.8 mmol/L (3.5-5.1); Sodium Level 137 mmol/L (136-145)
[2024-06-22 15:17] LABS: Hemoglobin A1c 5.7 % (3.8-5.6)
[2024-06-22 15:45] LABS: Vitamin D,25 Hydroxy 29.3 ng/mL
== END | disposition home or self-care (01) ==
LOC: POLAB3 09:16
PROVIDERS: PCP Family Medicine Geriatric Medicine; Visit Provider Family Medicine Geriatric Medicine
DX: I10 Essential (primary) hypertension (principal); E55.9 Vitamin D deficiency, unspecified; R73.9 Hyperglycemia, unspecified
CPT/HCPCS: 36415; 80053; 82306; 83036; 84443; 85025

== ENCOUNTER → 2024-06-29 | Outpatient (CLI) | payer MEDICARE, BC, SELFPAY ==
--- NOTE | 2024-06-29 14:57 | NEURO ---
NCS and/or EMG Patient Report Ordering Doctor: Aleks Yates DATE OF SERVICE: 06/29/24 Clinical Summary: 68 year old male patient with continued symptoms of numbness and tingling in the right hand despite carpal tunnel release surgery. A right upper extremity EMG/NCS was performed. Nerve Conduction Studies Summary: Nerve conduction studies of the right upper extremity were performed. The right median-D2 SNAP was absent. The right median-trent response was absent. The right ulnar-D5 SNAP amplitude was reduced. The right median-APB CMAP distal latency was prolonged with reduced amplitude. The right median motor conduction velocity was reduced in the forearm segment. The right ulnar motor conduction velocity dropped more than 10 m/s across the elbow segment. Needle Examination Summary: Needle examination of select muscles of the right upper extremity demonstrated a higher proportion of motor unit action potentials with reduced recruitment, increased amplitude, increased duration, and polyphasia in the right abductor pollicis brevis muscle. Impression: This is an abnormal right upper extremity study. There is electrodiagnostic evidence of the following - 1) Severe, right median mononeuropathy at the wrist (carpal tunnel syndrome), with secondary motor fiber axonal loss 2) Right ulnar mononeuropathy at the elbow, with secondary axonal loss Comment: In comparison to the EMG/NCS performed on 04/02/2023 (pre-carpal tunnel release), the right median and ulnar sensory and motor responses have not significantly changed. Multi Select Codes Neurology Neurology Interp Codes: 74159-51 Musc test done w/n test comp (interp) (1) and 00864-08 Nrv cndj test 7-8 studies (interp)
== END | disposition home or self-care (01) ==
LOC: PSN 13:40
PROVIDERS: PCP Family Medicine Geriatric Medicine; Referring Provider Orthopaedic Surgery Sports Medicine; Visit Provider Orthopaedic Surgery Sports Medicine
DX: G56.21 Lesion of ulnar nerve, right upper limb (principal)
CPT/HCPCS: 95886; 95910

== ENCOUNTER 2024-08-26 08:51 | Day surgery (SDC) | payer MEDICARE, BC, SELFPAY ==
[2024-08-26] VITALS (9 sets, daily range): BP systolic 108–136; BP diastolic 63–81; PULSE 48–57; RESP 16–20; TEMP 36.1–36.6; O2SAT 93–97; BMI 30.8
--- NOTE | 2024-08-26 09:48 | PCM.HP.STD ---
HPI - General HPI Narrative ALONSO BEAN, is a 69 M who presents for right revision open carpal tunnel release. rab post op instructions discussed. wrist marked. ok to proceed. no changes to h and p MR#: [id number] Acct: [id number] Name: ALONSO BEAN Rep #: [id number] : 1955 Provider: Dr. Aleks Yates MD Age/Sex: 69/M Location: [facility] [place]ON[place] Status: Signed Intake Vital Signs 05/08/2308:51 Height 6 ft 1 in Intake Visit Reasons: RIGHT WRIST Chief Complaint: right hand f/u, still has tingling,cold Accompanied by: Allergies gentamicin Allergy (Intermediate, Verified 07/20/24 09:13) PT UNSURE OF REACTION Medications ?Medication ?Instructions ?Recorded ?Confirmed ?Type lisinopril 10 1 tab PO DAILY 01/05/15 07/20/24 History mg-hydrochlorothiazide 12.5 mg tablet (Zestoretic) multivitamin with folic acid 400 1 tab PO DAILY 01/05/15 07/20/24 History mcg tablet (Thera) rosuvastatin 40 mg tablet 40 mg PO QHS 04/25/23 07/20/24 History cetirizine 10 mg capsule (Zyrtec) 10 mg PO BID 05/02/23 07/20/24 History vit 1 tab PO DAILY 05/02/23 07/20/24 History N-vdvqbqt-zvdlcbbse-rutin-[id number] 500 mg-50 mg-25 mg-40 mg tablet (Bioflex) Have you fallen in the past year?: No PFSH Medical History Wears hearing aid Wears glasses High cholesterol Back pain CPAP (continuous positive airway pressure) dependence Non-smoker History of edema Hypertension Bilateral carpal tunnel syndrome Cubital tunnel syndrome on right Surgical History Hx of colonoscopy H/O lumbosacral spine surgery Family History Brother HypertensionFather Colon cancerMother Colon cancer Social History Smoking Status: Never smoker HPI RIGHT WRIST Details: This documentation accurately reflects the service provided and the decisions made by me, Dr. Aleks Yates MD 07/20/24 0831. Part of today?s visit was documented by [ ], acting as scribe. ALONSO BEAN is a 69 year old M here today for follow-up 6 months from right endoscopic carpal tunnel release with persistent symptoms. Supplemental Info [facility] Pulmonary Services/Neurology [address] [place] [address] MR#: [id number] Acct: [id number] Name: ALONSO BEAN Rep #: [id number] : 1955 68 From: Jose Taveras MD Referring Dr: Aleks Yates MD Status: REG CLI Location: PSN Date: 06/29/24 Sex: M C NCS and/or EMG Patient Report Ordering Doctor: Aleks Yates DATE OF SERVICE: 06/29/24 Clinical Summary: 68 year old male patient with continued symptoms of numbness and tingling in the right hand despite carpal tunnel release surgery. A right upper extremity EMG/NCS was performed. Nerve Conduction Studies Summary: Nerve conduction studies of the right upper extremity were performed. The right median-D2 SNAP was absent. The right median-trent response was absent. The right ulnar-D5 SNAP amplitude was reduced. The right median-APB CMAP distal latency was prolonged with reduced amplitude. The right median motor conduction velocity was reduced in the forearm segment. The right ulnar motor conduction velocity dropped more than 10 m/s across the elbow segment. Needle Examination Summary: Needle examination of select muscles of the right upper extremity demonstrated a higher proportion of motor unit action potentials with reduced recruitment, increased amplitude, increased duration, and polyphasia in the right abductor pollicis brevis muscle. Impression: This is an abnormal right upper extremity study. There is electrodiagnostic evidence of the following - 1) Severe, right median mononeuropathy at the wrist (carpal tunnel syndrome), with secondary motor fiber axonal loss 2) Right ulnar mononeuropathy at the elbow, with secondary axonal loss Comment: In comparison to the EMG/NCS performed on 04/02/2023 (pre-carpal tunnel release), the right median and ulnar sensory and motor responses have not significantly changed. Ultrasound of the right wrist July 14, 2024 demonstrates flattening of the median nerve beneath an area of scarring from prior carpal tunnel release, with nerve enlargement and minimal hyperemia distally, suggestive of neuritis Coding Level of Care Code Off vis,est,level 3 Diagnoses Bilateral carpal tunnel syndrome G56.03 Assessment and Plan Assessment and Plan (1) Bilateral carpal tunnel syndrome: Status: Acute Plan: 69-year-old man with continued symptoms nerve evidence of severe median nerve compression as well as ultrasound evidence of free of scar tissue formation and persistent compression of the median nerve. The patient's options at this point would be rest ice anti-inflammatories doing nothing as well as revision carpal tunnel release. I preference that would be a revision open carpal tunnel release with wider decompression and removal of the central strip of the transverse carpal ligament and more extensive proximal and distal releases. We talked about the pros cons risks and benefits of each of these methods of treatment and the patient does want to go ahead with right open carpal tunnel release (revision). Recovery 2-3 weeks to heal incision 6-12 weeks no heavy lifting or gripping. Pros and cons risks and benefits were discussed with the patient including but not limited to infection, pain, stiffness, bleeding, damage to surrounding structures, neurovascular injury, recurrence or retear, failure or wear of hardware or fixation, instability, fracture, deep vein thrombosis and pulmonary embolism, anesthetic risks, , patient dissatisfaction, need for further surgery and other risks. Patient understood and wished to proceed with surgery, and signed the informed consent documentation. Clinical Quality Measures Falls Risk Screening/Assistive Devices Have you fallen in the past year?: No Ortho Exam General General: Yes no acute distress Neurologic: Yes alert and Yes oriented x3 Psychologic: Yes reasonable and appropriate Right Wrist/Hand Skin/Wound: Yes CDI, Yes healed, No Swelling, No Ecchymosis, Yes nail intact and Yes capillary refill normal Right Wrist: Yes ROM-Extension 0-60, ROM-Flexion 0-80, ROM-Pronation 0-80, ROM-Supination 0-90, Durken's Test and Thenar Atrophy; No Palpable Nodule, Tinel's or Hypothenar Atrophy Motor: EPL: 5, FDP-2: 5, 1st Dorsal Interosseous: 5 and APB: 5 Sensation: Radial: I, Ulnar: I and Median: D Left Wrist/Hand Skin/Wound: No Swelling and No Ecchymosis PFSH Medical History (Updated 08/13/24 @ 08:02 by Cami Spencer) Wears hearing aid Wears glasses High cholesterol CPAP (continuous positive airway pressure) dependence Non-smoker Hypertension Cubital tunnel syndrome on right Home Medications ?Medication ?Instructions ?Recorded ?Last Taken ?Type lisinopril 10 1 tab PO DAILY 01/05/15 Unknown History mg-hydrochlorothiazide 12.5 mg tablet (Zestoretic) multivitamin with folic acid 400 1 tab PO DAILY 01/05/15 Unknown History mcg tablet (Thera) rosuvastatin 40 mg tablet 40 mg PO QHS 04/25/23 Unknown History cetirizine 10 mg capsule (Zyrtec) 10 mg PO BID 05/02/23 Unknown History vit 1 tab PO DAILY 05/02/23 Unknown History D-rngpjvs-sfrjelvca-rutin-ztxu209 500 mg-50 mg-25 mg-40 mg tablet (Bioflex) fluoride (sodium) 1.1 % dental 1 applic PO QHS 08/13/24 Unknown History cream (SF 5000 Plus) methylcellulose (laxative) 500 mg 500 mg PO DAILY 08/13/24 Unknown History tablet (Citrucel) Allergy/AdvReac Type Severity Reaction Status Date / Time gentamicin Allergy Intermediate PT UNSURE Verified 08/26/24 09:27 OF REACTION Family History Brother Hypertension Father Colon cancer Mother Colon cancer Surgical History (Updated 08/13/24 @ 08:02 by Cami Spencer) History of carpal tunnel surgery of right wrist Hx of colonoscopy H/O lumbosacral spine surgery Social History Smoking Status: Never smoker Vital Signs Vital Signs Vital Signs: 08/26/24 09:34 08/26/24 09:34 Temperature 97.8 F Temperature Source Temporal Pulse Rate 48 L Respiratory Rate 16 Respiratory Pattern Normal Blood Pressure 136/69 H Blood Pressure Mean 91 Blood Pressure Source Monitor Blood Pressure Position Sitting Blood Pressure Location Right Arm Pulse Ox 97 Oxygen Delivery Method Room Air Weight Weight: 233 lb 11.04 oz Body Mass Index (BMI) 30.8
--- NOTE | 2024-08-26 10:55 | PRE.ANES_ITS ---
ASA Classification* ASA Classification ASA Classification: 2 Assessment & Plan Anesthesia* Anesthesia Assessment Anesthesia Assessment: Discussed sedation and/or anesthesia options, risks, benefits, and alternatives with patient/parents/legal guardian/POA. Questions invited. The patient/parents/legal guardian/POA seems to understand and agrees to proceed with anesthesia plan. Reviewed the physical assessment, medical history, allergy history and patient home medications list prior to surgery/procedure/anesthetic and documented any changes. Performed airway and anesthesia risk assessments. Anesthesia Type Anesthesia Type: MAC History Source History Obtained from:: Patient and Chart Anesthesia Focused Assessment* Temperature: 97.8 F Pulse Rate: 48 Blood Pressure: 136/69 Respiratory Rate: 16 Pulse Ox: 97 Oxygen Delivery Method: Room Air Airway Assessment Mouth opens: >3 cm Mallampati Score: IV Teeth Condition: Caps/Crowns (Several crowns. All tight.) and Missing (Patient missing 1 molar.) Neck Range of motion (ROM): Full ROM Focused Labs Anesthesia Preop lab: CBC WBC 6.2 K/mm3 (4.4-11.0) 06/22/24 09:16 06/22/24 RBC 4.89 M/mm3 (4.6-6.2) 06/22/24 09:16 06/22/24 Hgb 15.1 g/dL (13.0-16.5) 06/22/24 09:16 06/22/24 Hct 44.6 % (40-54) 06/22/24 09:16 06/22/24 Plt Count 277 K/mm3 (150-450) 06/22/24 09:16 06/22/24 CHEMISTRY Potassium 3.8 mmol/L (3.5-5.1) 06/22/24 09:16 06/22/24 Sodium 137 mmol/L (136-145) 06/22/24 09:16 06/22/24 Phosphorus 3.0 mg/dL (2.5-4.9) 11/03/14 10:07 11/03/14 BUN 15 mg/dL (7-18) 06/22/24 09:16 06/22/24 Creatinine 1.05 mg/dL (0.70-1.30) 06/22/24 09:16 06/22/24 Glucose 170 mg/dL (74-106) H 06/22/24 09:16 06/22/24 TSH 1.600 uIU/mL (0.358-3.740) 06/22/24 09:16 06/07 12/29 COAG Pre-Assessment Diagnosis/Proposed Procedure Planned Operative Procedure(s): RIGHT OPEN CARPAL TUNNEL RELEASE REVISION Anesthesia History Anesthesia History - police officer crime prevention: Anesthesia History - police officer crime prevention Hx Hospitalization No 08/13/24 07:57 Any Problems With Anesthesia No 08/13/24 07:57 Cholinesterase deficiency No 08/13/24 07:57 You/Your Family Experience No 08/13/24 07:57 fever (hyperthermia) with Relationship Recent Exposure to Contagious No 08/26/24 09:34 Disease Does patient have nerve No 08/13/24 07:57 stimulator Patient instructed to have device shut off --Does patient have Pacemaker or ICD? When Was Last Pacemaker Check QUESTION #4 FULL TEXT: You/Your Family Experience fever (hyperthermia) with Anesthesia Last Oral Intake Last Oral intake: Last Oral Intake NPO since 06:00 08/26/24 09:34 Meds taken in AM with sips of No 08/26/24 09:34 water? Meds patient instructed to take am of surgery Any additional information?: Yes NPO since: 06:00 (Patient had water at 5:00 AM.) Meds taken in AM with sips of water?: No PONV PONV - police officer crime prevention: PONV - police officer crime prevention Female No 08/13/24 07:57 HX of Motion Sickness No 08/13/24 07:57 HX of N/V After Surgery No 08/13/24 07:57 Non-Smoker Yes 08/13/24 07:57 Duration of Surgery greater No 08/13/24 07:57 than 60 minutes Number of Risk Factors 1 08/13/24 07:57 PONV Score Low Risk 08/13/24 07:57 Height & Weight Height & Weight: Anesthesia: Height & Weight Height 6 ft 1 in 08/26/24 09:34 Weight: 106 kg 08/26/24 09:34 Body Mass Index (BMI) 30.8 08/26/24 09:34 Respiratory Assessment Respiratory Assessment - police officer crime prevention: Respiratory Tract Infection Hx - police officer crime prevention Hx Respiratory Tract Infection No 08/13/24 07:57 STOP Sleep Apnea STOP Sleep Apnea - police officer crime prevention: STOP Sleep Apnea - police officer crime prevention Hx Hypertension Yes: CONTROLLED WITH MED 08/13/24 07:57 Hx Sleep Apnea Yes 08/13/24 07:57 CPAP Yes 08/13/24 07:57 BIPAP No 08/13/24 07:57 Do you snore loudly (louder than talking or can be heard Do you often feel tired/ fatigued/ sleepy during daytime? Has anyone observed you stop breathing during sleep? STOP Results Positive 08/13/24 07:57 QUESTION #5 FULL TEXT : Do you snore loudly (louder than talking or can be heard through closed doors)? Tobacco Use History Tobacco Use History - police officer crime prevention: Tobacco Use History - police officer crime prevention Tobacco Use Smoking Status Never smoker 08/13/24 07:57 Hx Tobacco Use No 08/13/24 07:57 Years Smoking Packs Smoked per Day Smoking Cessation Date was within the last 15 years Hx Smoking Cessation Date Hx Smoking Cessation Counseling Hematologic Medial History Hematologic Hx - police officer crime prevention: Hematologic Medical Hx - fisher spear Hx of Blood Transfusion No 08/13/24 07:57 Hx of Transfusion in last 3 No 08/13/24 07:57 Months Date of Last Transfusion (if within last 3 months) Ever experience any problems No 08/13/24 07:57 with transfusion(s)? Specify any problems Hx of Preganancy in last 3 N/A 08/13/24 07:57 Months Nurse Filling Out Transfusion DSCHRIBER 08/13/24 07:57 & Questions: Date: 08/13/24 08/13/24 07:57 Time: 07:58 08/13/24 07:57 Patient unable to answer at this time (ie. confused, unrespo /Reproduction History /Reproductive History - police officer crime prevention: /Reproductive Hx- police officer crime prevention Hx Now No 08/13/24 07:57 Gestational Age (in weeks): EDC: Hx Hx Para Hx Section SAB No 08/13/24 07:57 Active Medications Active Medications: Current Medications Generic Name Dose Route Start Last Admin Trade Name Freq PRN Reason Stop Dose Admin Cefazolin Sodium 2 gm/ N/A 20 mls @ 400 mls/hr 08/26/24 13:15 IV 08/26/24 13:17 PREOP ONE [facility] Medical History Wears hearing aid Wears glasses High cholesterol CPAP (continuous positive airway pressure) dependence Non-smoker Hypertension Cubital tunnel syndrome on right Home Medications ?Medication ?Instructions ?Recorded ?Last Taken ?Type lisinopril 10 1 tab PO DAILY 01/05/15 Unkn own History mg-hydrochlorothiazide 12.5 mg tablet (Zestoretic) multivitamin with folic acid 400 1 tab PO DAILY Unknown History mcg tablet (Thera) rosuvastatin 40 mg tablet 40 mg PO QHS 04/25/23 Unknow n History cetirizine 10 mg capsule (Zyrtec) 10 mg PO BID 3 Unknown History vit 1 tab PO DAILY 05/02/23 Unkn own History Q-oxzbecz-vjxfwqqbq-rutin-[id number] 500 mg-50 mg-25 mg-40 mg tablet (Bioflex) fluoride (sodium) 1.1 % dental 1 applic PO QHS 5 Unknown History cream (SF 5000 Plus) methylcellulose (laxative) 500 mg 500 mg PO DAILY 12/30 Unknown History tablet (Citrucel) Allergy/AdvReac Type Severity Reaction Status Date / Time gentamicin Allergy Intermediate PT UNSURE Verified 08/26/24 09:27 OF REACTION Family History Brother Hypertension Father Colon cancer Mother Colon cancer Surgical History History of carpal tunnel surgery of right wrist Hx of colonoscopy H/O lumbosacral spine surgery Social History Smoking Status: Never smoker Review of Systems (Anesthesia) ROS Narrative System reviewed and no additional complaints, except as documented.
[2024-08-26] MEDS: Cefazolin 2 GM in Syringe IV (12:31)
[2024-08-26] MEDS: Bupivacaine 0.25% 30 ML Vial (12:48)
--- NOTE | 2024-08-26 12:58 | PCM.OPRPT ---
Problems Associated Problem List Diagnoses (1) Bilateral carpal tunnel syndrome: Procedures Musculoskeletal [id number]: Other Procedure See Report Operative Report (Standard) Operative Information Date of Procedure: 08/26/24 Pre-Operative Diagnosis: Right recurrent carpal tunnel syndrome Post-Operative Diagnosis: Same Surgery/Procedure Performed: Right revision open carpal tunnel release retail wireless associate: Sharon Mail Order Clerk: jeanette Tasks completed by catering administrative assistant: Retracting Type of Anesthesia: Local MAC RN Documented Start/Stop Times: Operation Date: 08/26/24 13:20 Case Time Into Pre-Op 08/26/24 08:55 Anesthesia Start 08/26/24 12:25 Into Room 08/26/24 12:25 Procedure Start 08/26/24 12:40 Procedure End 08/26/24 12:55 Procedure Start Time: 12:40 Procedure Stop Time: 12:55 Select all DRAINS/GRAFTS/IMPLANTS that apply: None Estimated Blood Loss: 10 Specimen collected: No Description of surgery: Patient brought to the operating theater. Placed supine on the table. Local/mac. 2 g IV Ancef administered prior to the procedure. Arm table to the patient's right side tourniquet appropriately applied appropriately padded. SCDs on the legs. Bed turned 90 degrees. Upper extremity prepped and draped in the usual sterile fashion with chlorhexidine-based prep solution allowing over 3 minutes drying time prior to draping. Preoperative timeout performed confirm the site patient and surgery. Began by elevating the limb inflated the tourniquet to 250 mmHg. Made a small 1.5 inch incision centered over the carpal tunnel in line with the radial border of the fourth digit at the base of the palm. Carried the dissection down through skin and subcutaneous tissue achieved meticulous hemostasis. Incised the palmar fascia in line with the skin incision. Incised the transverse carpal ligament line with incision and then made sure to fully release this proximally and distally. He was quite tight. I excised the central strip of the ligament. I was sure to carry the dissection all the way proximally to the forearm fascia. I protected the nerve. The median nerve was fairly flat positive hourglass sign with synovitis and redness irritation along the length of the nerve especially at the distal aspect of the carpal tunnel. Ensured that there is no bands and that this was a nice wide release. Tourniquet let down meticulous hemostasis achieved wound thoroughly irrigated. Subcutaneous tissue closed with 3-0 Vicryl sutures and skin with 3-0 Monocryl followed by cleaning the skin with wet and dry dressing followed application of Steri-Strips Adaptic 4 x 4 gauze and Shannen wrap with tape. Patient woken up from the anesthetic transferred off the operating room table and taken to postanesthetic care unit in stable condition. All sponge needle instrument counts were correct no complications. Plan for the patient discharged home according to day surgery criteria no heavy lifting or grasping for the first 3 weeks and try to keep the wrist still in a wrist brace. cpt 37438 Surgical Findings: as above Complications Complications: No Admit VTE Documentation VTE Present on Admission: No VTE Mechan Device Prophylaxis: SCD's VTE Pharm Prophylaxis ordered?: No Reason prophylaxis not ordered: Treatment Not Indicated
--- NOTE | 2024-08-26 13:06 | EX.PCM.DISCH ---
Discharge Instructions Diet Discharge Diet: No restrictions Activity Ice area for (Minutes): 10 Lifting Restrictions: no lifting over 1 pound, use wrist brace for 2 weeks Keep extremity elevated above heart level: Operative Extremity Dressing / Incision Call your doctor if your incision/area has: Continuous Slow Oozing, Sudden Increased Bleeding, Increased Pain/ Swelling, Increased Redness, Foul Smelling Discharge and Swelling at the incision site Call your doctor if you observe: Fever of 101 or Higher, Coldness, Increased Pain and Numbness or Tingling Change Dressing in: leave in place till F/U Cleanse incision/area with: Do not get Incision Wet Follow Up Care Please Follow Up With: Aleks Yates MD When: within 2 weeks Test Results: Test results from this visit will be discussed in further detail at your follow-up appointment, if applicable. Discharge Plan Admission Attending Provider: Aleks Yates Primary Care Provider: Dash Rueda Chi Instructions Print Language: [place] Discharge Orders/Prescriptions Prescriptions: No Action rosuvastatin 40 mg tablet 40 mg PO QHS Patient Comments: take 1 tablet by mouth once daily lisinopril-hydrochlorothiazide [Zestoretic] 1 TABLET tablet 1 tab PO DAILY multivitamin with folic acid [Thera] 1 TABLET tablet 1 tab PO DAILY Bioflex [id number] mg tablet 1 tab PO DAILY Zyrtec 10 mg capsule 10 mg PO BID Citrucel 500 mg tablet 500 mg PO DAILY fluoride (sodium) [SF 5000 Plus] 1.1 % cream 1 applic PO QHS Referrals / Follow Up: Aleks Yates MD [Med Staff - Active Staff] - Dash Rueda Chi, MD [Primary Care Provider] - Disposition Disposition (needs filled in before D/C Order can be placed): Home, Self Care
--- NOTE | 2024-08-26 13:08 | PCM.POST.ANE ---
Anesthesia: Postop Eval I Current Vital Signs Temperature: 97 F Pulse Rate: 54 Blood Pressure: 108/63 Respiratory Rate: 20 Pulse Ox: 95 Oxygen Delivery Method: Nasal Cannula Oxygen Flow Rate (L/min): 3 Assessment Airway patent: Yes Spontaneous unlabored respirations: Yes Mental status: Awake and Calm nausea: No Vomiting: No Anesthesia Complication: No Fluid Hydration Crystalloid volume administer (ml): 300 Total IV fluid infused: 300 Progress Note Anesthesia document: Postop Eval 1 completed: Yes
--- NOTE | 2024-08-26 13:21 | POSTOPAN2_ITS ---
Anesthesia Postop Eval I Sum Postop Eval Completion status Anesthesia document: Postop Eval 1 completed: Yes Anesthesia Postop Eval I Summary Anesthesia Postop Eval I Summary: Anesthesia Postop Eval I: Assessment Summary Airway patent Yes 08/26/24 13:09 [email or web address] Spontaneous unlabored Yes 08/26/24 13:09 EMAIL [email or web address] respirations Mental status Awake,Calm 08/26/24 13:09 EMAIL [email or web address] nausea No 08/26/24 13:09 EMAIL [email or web address] Vomiting No 08/26/24 13:09 EMAIL [email or web address] Anesthesia Postop Eval I: Fluid Summary Crystalloid volume administer 300 08/26/24 13:09 EMAIL [email or web address] (ml) Colloids volume administered ( ml) Blood Product volume administered (ml) Total IV fluid infused 300 08/26/24 13:09 EMAIL [email or web address] Anesthesia Postop Eval I: Summary Notes Anesthesia Complication No 08/26/24 13:09 [email or web address] [email or web address] Anesthesia Complication Comment: Post-operative progress note Anesthesia: Postop Eval II Evaluation Mental status: Awake and Calm Pain Level: 0 nausea: No Vomiting: No
--- NOTE | 2024-08-26 13:21 | PCM.POSTANE2 ---
Anesthesia Postop Eval I Sum Postop Eval Completion status Anesthesia document: Postop Eval 1 completed: Yes Anesthesia Postop Eval I Summary Anesthesia Postop Eval I Summary: Anesthesia Postop Eval I: Assessment Summary Airway patent Yes 08/26/24 13:09 [email or web address] Spontaneous unlabored Yes 08/26/24 13:09 [email or web address] respirations Mental status Awake,Calm 08/26/24 13:09 [email or web address] nausea No 08/26/24 13:09 [email or web address] [email or web address] Vomiting No 08/26/24 13:09 [email or web address] Anesthesia Postop Eval I: Fluid Summary Crystalloid volume administer 300 08/26/24 13:09 [email or web address] (ml) Colloids volume administered ( ml) Blood Product volume administered (ml) Total IV fluid infused 300 08/26/24 13:09 [email or web address] [email or web address] Anesthesia Postop Eval I: Summary Notes Anesthesia Complication No 08/26/24 13:09 [email or web address] Anesthesia Complication Comment: Post-operative progress note Anesthesia: Postop Eval II Evaluation Mental status: Awake and Calm Pain Level: 0 nausea: No Vomiting: No
== END 2024-08-26 14:00 | disposition home or self-care (01) ==
LOC: SDC 08:52 → AC 08:54
PROVIDERS: PCP Family Medicine Geriatric Medicine; Referring Provider Orthopaedic Surgery Sports Medicine; Visit Provider Orthopaedic Surgery Sports Medicine
PROC: (CPT 64721; principal; 2024-08-26 13:05)
DX: G56.01 Carpal tunnel syndrome, right upper limb (principal); I10 Essential (primary) hypertension; E78.00 Pure hypercholesterolemia, unspecified; Z79.899 Other long term (current) drug therapy
CPT/HCPCS: 64721; 01810; A4216; J2405

== ENCOUNTER → 2024-09-22 | Outpatient (CLI) | payer MEDICARE, BC, SELFPAY | END | disposition home or self-care (01) | LOC: LAB 12:28 | PROVIDERS: PCP Family Medicine Geriatric Medicine; Visit Provider Family Medicine Geriatric Medicine | DX: R68.83 Chills (without fever) (principal) | CPT/HCPCS: 87631 ==

== ENCOUNTER → 2024-12-18 | Outpatient (CLI) | payer MEDICARE, BC, SELFPAY ==
[2024-12-18 11:03] LABS: Absolute Lymphocyte Count 1.39 X10^3/uL (0.83-4.51); Absolute Neutrophil Count 3.3 X10^3/uL (2.0-7.7); Basophil# 0.04 X10^3/uL; Basophil% 0.7 % (0-1); Eosinophil# 0.33 X10^3/uL; Eosinophils% 5.6 % (0-5); Hematocrit 44.7 % (40-54); Hemoglobin 15.6 g/dL (13.0-16.5); Lymphocyte # 1.39 X10^3/ul (0.83-4.51); Lymphocyte % 23.6 % (19-41); Mean Corp Hgb Conc 34.9 g/dL (32-36); Mean Corpuscular Hgb 31.6 pg (27.0-32.0); Mean Corpuscular Volume 90.5 fL (80-94); Monocyte# 0.77 X10^3/uL; Monocyte% 13.1 % (0-10); NRBC Flagged by Analyzer 0 % (0-5); Neutrophil % 56.1 % (47-70); Platelet Count 242 K/mm3 (150-450); RBC Distribution Width CV 14.3 % (11.6-14.6); RBC Distribution Width SD 47.3 fl (35.1-43.9); Red Blood Count 4.94 M/mm3 (4.6-6.2); White Blood Count 5.9 K/mm3 (4.4-11.0)
[2024-12-18 14:48] LABS: ALB/GLOB Ratio 1.6 RATIO (0.9-2.4); AST(SGOT) 23 U/L (<=37); Alanine Aminotransfer ALT/SGPT 24 U/L (<=46); Albumin, Serum 4.4 g/dL (3.4-4.8); Alkaline Phosphatase 110 U/L (40-129); Anion Gap 11 (5-15); BUN 16 mg/dL (4-19); BUN/Creat Ratio 15.4 RATIO (10-20); Calcium,Total 9.3 mg/dL (7.6-11.0); Carbon Dioxide 24.4 mmol/L (21.0-32.0); Chloride 102 mmol/L (98-108); Creatinine, Serum 1.06 mg/dL (0.70-1.20); EST Glomerular Filtration Rate 75 (>60); Globulin 2.8 g/dL (2.2-4.2); Glucose 100 mg/dL (70-99); Potassium 4.1 mmol/L (3.3-5.1); Protein, Total 7.1 g/dL (5.9-8.4); Sodium Level 137 mmol/L (133-145); Total Bilirubin 0.61 mg/dL (0.00-1.30)
== END | disposition home or self-care (01) ==
LOC: LAB 10:31
PROVIDERS: PCP Family Medicine Geriatric Medicine; Referring Provider Family Medicine Geriatric Medicine; Visit Provider Family Medicine Geriatric Medicine
DX: I10 Essential (primary) hypertension (principal); E55.9 Vitamin D deficiency, unspecified
CPT/HCPCS: 36415; 80053; 82306; 84443; 85025

== ENCOUNTER → 2025-01-11 | Outpatient (CLI) | payer OTHER, SELFPAY | END | disposition home or self-care (01) | LOC: MTRAD 09:53 | PROVIDERS: PCP Family Medicine Geriatric Medicine; Referring Provider Physician Assistant Medical; Visit Provider Physician Assistant Medical | DX: S89.92XA Unspecified injury of left lower leg, initial encounter (principal); X58.XXXA Exposure to other specified factors, initial encounter | CPT/HCPCS: 73564 ==

== ENCOUNTER → 2025-02-05 | Outpatient (CLI) | payer OTHER, SELFPAY ==
--- NOTE | 2025-02-05 10:25 | RAD_ITS ---
PROCEDURE: KNEE 4 OR MORE VIEWS 02/05/2025 REASON FOR EXAM: RIGHT KNEE PAIN TECHNIQUE: KNEE 4 OR MORE VIEWS COMPARISON: 2019 FINDINGS: No demonstrated fracture or suspicious osseous lesion. 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 No fracture or suspicious osseous l esion Reading Location: [id number]
== END | disposition home or self-care (01) ==
LOC: MTRAD 10:21
PROVIDERS: PCP Family Medicine Geriatric Medicine; Referring Provider Physician Assistant Surgical; Visit Provider Physician Assistant Surgical
DX: S80.01XA Contusion of right knee, initial encounter (principal); X58.XXXA Exposure to other specified factors, initial encounter; M17.11 Unilateral primary osteoarthritis, right knee
CPT/HCPCS: 73564

== ENCOUNTER → 2025-03-03 | Outpatient (CLI) | payer OTHER, SELFPAY ==
--- NOTE | 2025-03-03 14:07 | MRI_ITS ---
PROCEDURE: LOWER EXT JOINT ONLY (ROUTINE) 03/03/2025 REASON FOR EXAM: RIGHT KNEE PAIN, LOCKING TECHNIQUE: T1, T2, PD, MRI right knee, multiplanar and multisequence images were obtained without IV contrast administration. COMPARISON: COMPARISON : February 05, 2025 x-ray FINDINGS: Bone Marrow: There is no bony contusion or occult fracture. There is a 0.45 cm corticated osteochondral fragment in the posterior medial joint space. Cruciate ligaments: There is a edema and attenuation in the mid and lower thirds of the anterior cruciate ligament without laxity, grade 2 sprain. The posterior cruciate appears intact. Menisci: The lateral meniscus there is a horizontal tear in the body which extends to the tibial surface, with extrusion. There is a radial tear in the posterior horn of the medial meniscus, 0.8 cm from the root. Extensor compartment: The distal quadriceps and patellar tendons appear intact. Collateral ligaments: The medial collateral ligament appears intact. The lateral collateral ligament complex appears intact. Effusion: There is a trace joint effusion. There is no Leach's cyst. 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 MRI/Lower Ext Joint Only (Routine) IMPRESSION: There is a 0.45 cm corticated osteochondral fragment in the posterior medial rajesh int space. There is a edema and attenuation in the mid and lower thirds of the anterior cr uciate ligament without laxity, grade 2 sprain. The posterior cruciate appears intact. The lateral meniscus there is a horizontal tear in the body which extends to th e tibial surface, with extrusion. There is a radial tear in the posterior horn of the medial meniscus, 0.8 cm fro m the root. There is a trace joint effusion. There is moderate chondromalacia in the lateral tibial plateau and anterior lat eral femoral condyle. Reading Location: [facility]
== END | disposition home or self-care (01) ==
LOC: MRI 14:05
PROVIDERS: PCP Family Medicine Geriatric Medicine; Referring Provider Physician Assistant; Visit Provider Physician Assistant
DX: M23.8X1 Other internal derangements of right knee (principal); S80.01XA Contusion of right knee, initial encounter; X58.XXXA Exposure to other specified factors, initial encounter
CPT/HCPCS: 73721

== ENCOUNTER 2025-04-05 10:00 | Outpatient (RCR) | payer OTHER, MEDICARE, BC, SELFPAY ==
--- NOTE | 2025-02-15 12:30 | HP.PTEVAL_ITS ---
Patient's Visit Information Visit Information Visit Information: ALONSO BEAN is a 69 year old M referred to Physical Therapy by JAVON Lubin with a diagnosis of B knee contusion. Date of Evaluation: 02/15/25 Physical Therapist: Serafin Evans DPT Visit Plan Frequency: 3x /Week Duration: 4-6 Weeks Plan: 1) B knee ROM, R is worse than L 2) foam rolling to B quads and HS 3) vaso R knee edema control 4) progressive functional strengthening of BLEs. HEP at IE: heel slides, quad stretch prone, long sitting HS stretch, vaso done as well. Subjective Subjective: Pt. is here today for his initial evaluation with B knee contusion. January 06. Pt. reports falling over a box onto his knees. Pt. had initial soreness on his L knee, but then over the next few days he started having more and more R knee pain. No N/T noted. 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 Pt. is able to do most of his job, but has difficulty with stairs and getting in/out of car. He does have some times where it wakes him up at night. He reports being able to do most activities, but does have pain. He has had xrays- negative for fracture. No MRIs completed. He prednisone without much relief. Pt. would benefit from PT to address his symptoms in order to get back to working without limitations. Pain R knee: Pain Intensity (Out of 10): 3 Pain Intensity Range: 0 and 3 L knee: Pain Intensity (Out of 10): 1 Pain Intensity Range: 0 and 2 Objective Objective: POSTURE: normal throughout. [place] Pt. has some tenderness at quad tendon and medial joint line. NEURO: normal bilaterally. ROM: L knee; 0-0-138deg. MMT: LLE: knee: ext 55.0#, flex 26.3# RLE: 56.2# increase NW, flex 21.1# GAIT: Pt. ambulates with slight antalgic pattern during R stance phase. Pt. lacks TKE on R side. STAIRS: Pt. is able to complete with reciprocal pattern, but does have increased R knee pain during loading both ascending and descending. Special Tests R Knee Curly - Meniscus: Negative R Knee Disco Test - Meniscus: Positive R Knee Ann - ACL: Negative R Knee Pivot Shift - ACL, Ant. Rotator Instability: Negative R Knee Valgus - MCL: Negative R Knee Varus - LCL: Negative R Knee Patellar Grind - PFS: Negative L Knee Curly - Meniscus: Negative L Knee Disco Test - Meniscus: Negative L Knee Ann - ACL: Negative L Knee Anterior Drawer - ACL: Negative L Knee Valgus - MCL: Negative L Knee Varus - LCL: Negative Balance/Special Test Scores Lower Extremity Functional Score: 32 Goals Goal 1:: LTG: Pt. to be I with HEP. Goal Time Frame: 4-6 Weeks Goal 2:: LTG: pt. to have increased B knee ROM to at least 0-0-135deg. without increase in symptoms. Goal Time Frame: 4-6 Weeks Goal 3:: LTG: Pt. to ambulate with normal gait pattern without increase in B knee pain on multiple surfaces. Goal Time Frame: 4-6 Weeks Goal 4:: LTG: Pt. to negotiate 1 flight of stairs with out HR with out increase in B knee mckay. Goal Time Frame: 4-6 Weeks Goal 5:: LTG: pt. to complete 6 MWT with distances of 1400' without increase in symptoms. Goal Time Frame: 4-6 Weeks Goal 6:: LTG: Pt. to complete 30sec sit to stand test with at least 15 reps Goal Time Frame: 4-6 Weeks Rehabilitation Potential Physical Therapy Diagnosis: Pt. has signs and symptoms consistent with B knee contusion, R is worse than L. Pt. has marked limited L knee ROM and some edema. He has pain with WBing and twisting activities. He would benefit from PT to improve his ROM and reduce his edema in order to get back to all work and recreational activities. Rehabilitation Potential: Excellent Anticipated Interventions Patient/Client Instruction: Educate patient on: Condition, Plan of Care, Risk Factors and Benefits of Fitness Program For the Purpose of:: To facilitate caregiver knowledge, To improve self management, To prevent re-injury, To improve ability to perform tasks related to life management and To improve tolerance to ADL's Therapeutic Exercise to Include: Strength training, Power training, Coordination, Agility training, Body mechanics, Flexibilty training, Gait and locomotor training, Passive ROM and Active ROM For the Purpose of:: To decrease pain, To increase ROM, To improve nutrient delivery to tissue, To increase oxygenation perfusion, To improve muscle performance and motor function, To improve ability to perform ADL's, To improve gait and locomotor functions, To improve health of tissue, To decrease soft tissue restriction, To increase flexibility/ROM and To improve endurance Cryotherapy (ice pack, ice massage): Yes Vasopneumatic device: Yes For the Purpose of:: To decrease pain, To decrease swelling/inflammation and To increase ROM Text: Thank you for the opportunity to evaluate your patient. For Medicare and Medicare HMO plans, please review the plan of care and approve it. It will need to be FAXED BACK to us at [phone] for Medicare purposes. For Medicare only, by signing this I certify the plan of care. Please let me know if there are questions or concerns regarding this plan of care. Physician Signature: Date:___
--- NOTE | 2025-03-23 09:25 | HP.PTREVAL ---
Re-Evaluation Intro: Dr. Aleks Yates MD, It has been my pleasure to treat ALONSO BEAN over the last 5 visits for B knee contusion. Please see the progress note below for an update on the physical therapy plan of care! Subjective Subjective: Pt. reports having an MRI showing a medial and lateral meniscal tear of R. Pt. had an injection and is feeling better. Pt. is now allowed to work, but does have some restrictions, no squatting and limited to half days. Objective Objective/Function: ROM: 0-1-138deg R knee. TIghtness in HS noted. MMT: RLE: knee: ext 5-/5, flexion 5-/5, hip: flex 4+/5, abd 4+/5, ext 4+/5 GAIT: Pt. has decent gait pattern with minimal antalgic pattern noted. STAIRS: normal pattern mild increase NW iwth descending during R loading phase. PT. is overall doing better after his injection. I would like for him to start strengthening and progressing back to all work activities indicated by physician Plan Plan Plan: Progression of R quad, HS. glute medius. R HS stretching. Balance/Gait/Functional tests Balance/Special Test Scores Lower Extremity Functional Score: 32 30 Second Chair Rise Test Seconds: 13 6 Minute Walk Test: 1123 Goals Goals Goal 1:: LTG: Pt. to be I with HEP. Goal Time Frame: 4-6 Weeks Goal Progress: Progressing Goal 2:: LTG: pt. to have increased B knee ROM to at least 0-0-135deg. without increase in symptoms. Goal Time Frame: 4-6 Weeks Goal Progress: Progressing Goal 3:: LTG: Pt. to ambulate with normal gait pattern without increase in B knee pain on multiple surfaces. Goal Time Frame: 4-6 Weeks Goal Progress: Progressing Goal 4:: LTG: Pt. to negotiate 1 flight of stairs with out HR with out increase in B knee mckay. Goal Time Frame: 4-6 Weeks Goal Progress: Progressing Goal 5:: LTG: pt. to complete 6 MWT with distances of 1400' without increase in symptoms. Goal Time Frame: 4-6 Weeks Goal Progress: Progressing Goal 6:: LTG: Pt. to complete 30sec sit to stand test with at least 15 reps Goal Time Frame: 4-6 Weeks Goal Progress: Progressing Anticipated Interventions Anticipated Interventions Patient/Client Instruction: Educate patient on: Condition, Plan of Care, Risk Factors and Benefits of Fitness Program For the Purpose of:: To facilitate caregiver knowledge, To improve self management, To prevent re-injury, To improve ability to perform tasks related to life management and To improve tolerance to ADL's Therapeutic Exercise to Include: Strength training, Power training, Coordination, Agility training, Body mechanics, Flexibilty training, Gait and locomotor training, Passive ROM and Active ROM For the Purpose of:: To decrease pain, To increase ROM, To improve nutrient delivery to tissue, To increase oxygenation perfusion, To improve muscle performance and motor function, To improve ability to perform ADL's, To improve gait and locomotor functions, To improve health of tissue, To decrease soft tissue restriction, To increase flexibility/ROM and To improve endurance Cryotherapy (ice pack, ice massage): Yes Vasopneumatic device: Yes For the Purpose of:: To decrease pain, To decrease swelling/inflammation and To increase ROM Re-Evaluation Ending Re-evaluation ending: Please do not hesitate to contact me at [phone] by phone or if you have questions or concerns regarding this new plan of care! Sincerely, Serafin Evans DPT
--- NOTE | 2025-04-05 10:38 | HP.PTDCSUM ---
Discharge Summary D/C summary: It has been my pleasure to treat ALONSO BEAN referred by Dr. Aleks Yates MD, with the diagnosis of B knee contusion for a total of 10 visit(s). Discharge Date: 04/05/25 Please see the following information for a summary of their discharge status. Subjective Subjective: Pt. reports overall doing well. He does get some intermittent medial knee pain. Pt. reports no pain currently. Pt. reports being 80% better overall. Pt. reports work is going well. Pt. is still on work restrictions. Pain R knee: Pain Intensity (Out of 10): 0 L knee: Pain Intensity (Out of 10): 0 Overall Improvement % Improvement: 80 Objective Objective/Function: ROM: Normal without increase in either knee pain MMT: 5/5 throughout GAIT: Normal gait STAIRS: Pt. was able to complete without much issues, 1 HR no increase in B knee pain Pt. did very well with all PT. Pt. is going on vacation then back next week. Pt is okay to be DC from PT at this point in time. He is okay with continuing to strengthening with exercises I have given him. He will check back with physician once returning to Goals Goal 1:: LTG: Pt. to be I with HEP. Goal Progress: Goal Met Goal 2:: LTG: pt. to have increased B knee ROM to at least 0-0-135deg. without increase in symptoms. Goal Progress: Goal Met Goal 3:: LTG: Pt. to ambulate with normal gait pattern without increase in B knee pain on multiple surfaces. Goal Progress: Goal Met Goal 4:: LTG: Pt. to negotiate 1 flight of stairs with out HR with out increase in B knee mckay. Goal Progress: Goal Met Goal 5:: LTG: pt. to complete 6 MWT with distances of 1400' without increase in symptoms. Goal Progress: Goal Met Goal 6:: LTG: Pt. to complete 30sec sit to stand test with at least 15 reps Goal Progress: Goal Met Plan Plan: Pt. to be DC to physician at this point in time. Pt. is to continue with his strengthening exercises. Pt. consents. D/C Information d/c sentence: If there are questions or concerns regarding this patient's physical therapy, please feel free to call me at [phone]. Thank you for the referral of this patient. Sincerely, Serafin Evans, DPT Balance/Gait/Functional tests Balance/Special Test Scores Lower Extremity Functional Score: 60 30 Second Chair Rise Test Seconds: 17 6 Minute Walk Test: 1780 feet no AD Improvement % Improvement: 80
== END 2025-04-05 19:00 | disposition home or self-care (01) ==
LOC: PT 10:00
PROVIDERS: PCP Family Medicine Geriatric Medicine; Referring Provider Orthopaedic Surgery Sports Medicine; Visit Provider Orthopaedic Surgery Sports Medicine
DX: S83.241D Other tear of medial meniscus, current injury, right knee, subsequent encounter (principal); S83.281D Other tear of lateral meniscus, current injury, right knee, subsequent encounter; S83.511D Sprain of anterior cruciate ligament of right knee, subsequent encounter; M17.11 Unilateral primary osteoarthritis, right knee
CPT/HCPCS: 97016; 97110; 97161; 97530

== ENCOUNTER → 2025-06-22 | Outpatient (CLI) | payer MEDICARE, BC, SELFPAY ==
[2025-06-22 10:44] LABS: Hematocrit 47.0 % (40-54); Hemoglobin 16.0 g/dL (13.0-16.5); Immature Granulocytes Count 0.050 X10^3/uL (0.0-0.0); Mean Corp Hgb Conc 34.0 g/dL (32-36); Mean Corpuscular Volume 91.4 fL (80-94); Mean Platelet Vol. 8.7 fl (6.2-12.0); NRBC Flagged by Analyzer 0 % (0-5); Platelet Count 298 K/mm3 (150-450); RBC Distribution Width CV 13.6 % (11.6-14.6); RBC Distribution Width SD 46.2 fl (35.1-43.9); Red Blood Count 5.14 M/mm3 (4.6-6.2); White Blood Count 6.5 K/mm3 (4.4-11.0)
[2025-06-22 11:08] LABS: AST(SGOT) 21 U/L (<=37); Alanine Aminotransfer ALT/SGPT 21 U/L (<=46); Albumin, Serum 4.3 g/dL (3.4-4.8); Alkaline Phosphatase 98 U/L (40-129); Anion Gap 10 (5-15); BUN 15 mg/dL (4-19); BUN/Creat Ratio 13.6 RATIO (10-20); Calcium,Total 9.5 mg/dL (7.6-11.0); Carbon Dioxide 26.8 mmol/L (21.0-32.0); Chloride 101 mmol/L (98-108); Globulin 2.8 g/dL (2.2-4.2); Glucose 162 mg/dL (70-99); Potassium 4.0 mmol/L (3.3-5.1); Vitamin D,25 Hydroxy 27.1 ng/mL (30-100)
[2025-06-22 18:22] LABS: Xtra Tube Kwok EXTRA TUBE
== END | disposition home or self-care (01) ==
LOC: POLAB3 10:21
PROVIDERS: PCP Family Medicine Geriatric Medicine; Visit Provider Family Medicine Geriatric Medicine
DX: R73.09 Other abnormal glucose (principal); I10 Essential (primary) hypertension; E55.9 Vitamin D deficiency, unspecified
CPT/HCPCS: 36415; 80053; 82306; 83036; 84443; 85025